=== PATIENT | female | born 1985 | race Caucasian/White ===

== ENCOUNTER 2016-06-17 02:12 | Inpatient (IN) | payer OTHER ==
[~2016-06-17] VITALS: Ht 157.5 cm; Wt 74.5 kg
[~2016-06-17 02:12] MED LIST: DICY20TA10 PO; DPH/ PO
[2016-06-17] MEDS ORDERED: LACTATED RINGER'S 1000ML 1,000 ML IV PRN (03:10)
[2016-06-17] MEDS ORDERED: LACTATED RINGER'S 1000ML 500 ML IV PRN ×2 (03:12→09:26)
[2016-06-17] MEDS ORDERED: OXYTOCIN 30 UNITS/500ML NSS IV PRN ×2 (03:15→18:15)
[2016-06-17 03:46] LABS: HEMATOCRIT 37.1 % (37-47); MEAN CELL VOLUME 99.5 fL (80-100); MEAN CORPUSCULAR HEMOGLOBIN 33.2 pg (25-34); MEAN CORPUSCULAR HGB CONC 33.4 g/dl (32-36); MEAN PLATELET VOLUME 10.6 fL (7.4-10.4); PLATELET COUNT 312 K/uL (130-400); RED BLOOD COUNT 3.73 M/uL (4.2-5.4); WHITE BLOOD COUNT 14.99 K/uL (4.8-10.8)
--- NOTE | 2016-06-17 04:06 | HISTORY & PHYSICAL EXAMINATION ---
DATE OF ADMISSION: 06/17/2016 CHIEF COMPLAINT: Leakage of fluid. HISTORY OF PRESENT ILLNESS: The patient is a 30-year-old, G1, P0 at 39 weeks' of gestation who started to feel leakage of amniotic fluid at 0020 am this morning. She has been leaking large amounts of clear fluid. She denies contractions, vaginal bleeding or abdominal pain. She reports good movements. She denies fever, chills, chest pain, shortness of breath, headache, nausea or vomiting. Her has been complicated by: 1. Smoker. She was smoking half pack a day at the beginning of and now down to 5 cigarettes per day. 2. History of a splenectomy. PAST MEDICAL HISTORY: As above. 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 ALLERGIES: ALBUTEROL CAUSES TACHYCARDIA, PERCOCET CAUSES NAUSEA AND VOMITING. SOCIAL HISTORY: The patient smokes 5 cigarettes per day. She denies alcohol or drug use. GYNECOLOGIC HISTORY: The patient denies any history of STDs including chlamydia, gonorrhea or herpes. This is her first . LABORATORIES: Her blood type is A positive, antibody screen negative, H\T\H were 12/35 and platelets 351. Rubella titer positive, RPR nonreactive, hepatitis B surface antigen negative. GC /chlamydia cultures were negative. Urine culture was negative. Glucola was 102 mg per deciliter. Repeat H\T\H were 10.6/31.2. Her platelets were 330. GBS culture was negative on 05/28/2016. PHYSICAL EXAMINATION: GENERAL: The patient is alert, oriented x3, not in acute distress. VITAL SIGNS: Her blood pressure is 110/72, heart rate 104, respirations 16, temperature 36.8 C CARDIOVASCULAR: S1, S2, RRR. LUNGS: Clear to auscultation bilaterally. ABDOMEN: Soft, nontender and gravid. Daniel's 7-8 pounds EXTREMITIES: Nontender, no edema. heart rate 150s, baseline 140s, category 1. Tocometer; no contractions. Vaginal exam done by her nurse; 1 cm dilated, 50% effaced, -2 vertex. Bedside ultrasound was done and confirmed vertex presentation. heart rate 150s and baby occiput posterior. ASSESSMENT AND PLAN: The patient is a 30-year-old, G1, P0 at 39 weeks' of gestation presenting with premature rupture of membranes at term. Vital signs are stable, afebrile. heart rate is reassuring. GBS is negative. No signs of labor. We discussed the premature rupture of membranes at term and recommended Pitocin augmentation to decrease the time of labor and the risk intra-amniotic infection. She understood and agreed with the plan. The plan is to start an IV, CBC, augmentation with Pitocin and continuously monitoring. Epidural for pain per her request. All questions were answered. CRISS
[2016-06-17 04:18] VITALS: Ht 157.5 cm; Wt 74.5 kg
[2016-06-17] MEDS ORDERED: FERR50TA3 (04:28)
[2016-06-17] MEDS ORDERED: DOCU-94 PO (04:28)
[2016-06-17] MEDS ORDERED: PRLSR20 PO (04:28)
[2016-06-17] MEDS ORDERED: PRENTAB26 PO (04:28)
[2016-06-17] MEDS ORDERED: BUTORPHANOL TARTRATE 1 MG/ML VIAL IV PRN (07:15)
[2016-06-17] MEDS: LACTATED RINGER'S 1000ML 1,000 ML IV SCH ×2 (08:48→17:09)
[2016-06-17] MEDS ORDERED: BUPIVACAINE 0.25% 30 ML VIAL ONE (08:51)
[2016-06-17] MEDS ORDERED: EpHEDrine SULFATE INJ 50 MG/ML AMP ONE (08:51)
[2016-06-17] MEDS ORDERED: FENTANYL CITRATE INJ 50 MCG/1 ML 2 ML VIAL ONE (08:52)
[2016-06-17] MEDS ORDERED: FENTANYL 2MCG/ML ROPIV 1.25MG/ML 100ML BAG EPI ONE (08:55)
[2016-06-17] MEDS ORDERED: NALOXONE HCL INJ 1 MG in SODIUM CHLORIDE 0.9% 1000ML 1,000 ML IV PRN ×4 (09:26)
[2016-06-17] MEDS ORDERED: NALBUPHINE HCL INJ 10 MG/ML AMP IV PRN (09:30)
[2016-06-17] MEDS ORDERED: ONDANSETRON INJ 2 MG/ML 2 ML VIAL IV PRN (09:30)
[2016-06-17] MEDS ORDERED: EpHEDrine SULFATE INJ 50 MG/ML AMP IV PRN (09:30)
[2016-06-17] MEDS ORDERED: LACTATED RINGER'S 1000ML 500 ML IV ONE (09:30)
[2016-06-17] MEDS ORDERED: NALOXONE HCL INJ 0.4 MG/1 ML VIAL/CARP IV PRN (09:30)
[2016-06-17] MEDS ORDERED: DiphenhydrAMINE HCL 50 MG/ML VIAL IV PRN (09:30)
[2016-06-17] MEDS ORDERED: METOCLOPRAMIDE HCL INJ 20 MG in SODIUM CHLORIDE 0.9% 50ML 50 ML IV PRN (09:30)
[2016-06-17] MEDS: FENTANYL 2MCG/ML ROPIV 1.25MG/ML 100ML BAG EPI PRN ×2 (14:59→17:11)
[2016-06-17] MEDS ORDERED: SUPERCREAM 0.870 % 15GM JAR EXT PRN (18:15)
[2016-06-17] MEDS ORDERED: ACETAMINOPHEN 325 MG TAB PO PRN (18:15)
[2016-06-17] MEDS ORDERED: HYDROCORTISONE ACETATE 25 MG SUPP PR PRN (18:15)
[2016-06-17] MEDS ORDERED: LANOLIN OINT EXT PRN ×2 (18:15)
[2016-06-17] MEDS ORDERED: BENZOCAINE 20% AER SPR 82.5 GM CAN EXT PRN (18:15)
[2016-06-17] MEDS ORDERED: DIPHTHERIA/TETANUS/PERTUSSIS 0.5 ML SYR/VIAL IM. ONE (18:15)
[2016-06-17] MEDS: DOCUSATE SODIUM 100 MG CAP PO SCH (20:46)
[2016-06-17] MEDS: IBUPROFEN 600 MG TAB PO PRN (20:46)
[2016-06-17 20:50] VITALS: BP 106/62; PULSE 90; TEMP 36.8
--- NOTE | 2016-06-17 22:56 | Anesthesia Procedure Note ---
Anesthesia Epidural Removal Nt Date & Time June 17, 2016 at 22:56 Vital Signs Pain Intensity: 2.0 Vital Signs Past 12 Hours Date Time Temp Pulse Resp B/P Pulse Ox O2 Delivery O2 Flow Rate FiO2 06/17/16 20:50 36.8 90 16 106/62 Room Air Notes Mental Status: alert / awake / arousable, participated in evaluation Nausea / Vomiting: adequately controlled Pain: adequately controlled Airway Patency, RR, SpO2: stable & adequate BP & HR: stable & adequate Hydration State: stable & adequate Neuraxial Anesthesia: was administered Anesthetic Complications: no major complications apparent, pt satisfied with anesthetic care Epidural: removed without complications, with tip intact
[2016-06-17 23:15] VITALS: BP 106/67; PULSE 95; TEMP 37
--- NOTE | 2016-06-18 02:41 | DELIVERY SUMMARY ---
DATE OF OPERATION: 06/17/2016 TIME OF DELIVERY: 174. DELIVERY OF PLACENTA: 1748. DELIVERY NOTE: The patient is a 30-year-old 1, para 0, at 39 weeks and 0 day gestation, who presented to labor and delivery on the morning of 06/17/2016 with spontaneous rupture of membranes that occurred around 12:15 a.m. On arrival, she was grossly ruptured. Oxytocin was began for labor augmentation. She did receive an epidural for anesthesia. She reached complete dilation at 1739 with the urge to push. The patient pushed to delivery. At 1746, she delivered a viable male infant in the left occiput anterior position to an intact perineum. Apgars and weight are pending. The baby once delivered was placed on the patient's abdomen. Cord was clamped x2 and cut. Please see nursing notes for further baby assessment. Cord blood was then obtained and the intact placenta with 3-vessel cord was delivered at 1748. Oxytocin infusion was then began. The lower uterine segment and vagina was cleared off any blood clots and debris. Exploration of the perineum noted a second-degree vaginal laceration which was repaired with 2-0 and 3-0 Vicryl suture in normal fashion. Excellent hemostasis was noted. No other lacerations were seen. Three sharps removed from the operative field. All sponge and instrument counts were found to be correct x2. Estimated blood loss was 300 mL. Both the patient and baby tolerated the delivery well and were in recovery with stable vital signs. I attest to the content of the Intraoperative Record and any orders documented therein. Any exceptio ns are noted below.
[2016-06-18 05:58] LABS: HEMATOCRIT 30.8 % (37-47)
[2016-06-18 08:00] VITALS: BP 111/70; PULSE 87; TEMP 37.1; O2SAT 98
[2016-06-18] MEDS: DOCUSATE SODIUM 100 MG CAP PO SCH ×2 (08:49→20:32)
[2016-06-18] MEDS: IBUPROFEN 600 MG TAB PO PRN ×3 (08:49→20:36)
[2016-06-18] MEDS: PRENATAL VITAMIN TAB PO SCH (08:49)
[2016-06-18] MEDS: FERROUS SULFATE 325 MG TAB PO SCH (08:49)
--- NOTE | 2016-06-18 08:58 | OB/GYN Progress Note ---
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 Patient is seen and examined. She feels well, but complains of not able to void Straight cath 1500 ml at 3 am, unable to void after that. Ambulating without dizziness Tolerating regular diet with out N&V Bleeding is minimal No fever/ chills/ CP/ SOB/ N&V/ Leg pain Breast feeding without problems Date Time Temp Pulse Resp B/P Pulse Ox O2 Delivery O2 Flow Rate FiO2 06/17/16 23:15 37.0 95 20 106/67 Room Air 06/17/16 20:50 36.8 90 16 106/62 Room Air Last 24 Hours Test 06/18/16 05:43 Hemoglobin 10.5 g/dL Hematocrit 30.8 % PE: General: Alert, orientedx3, NAD Abd: soft, NT, fundus firm, below Umbilicus Perineum intact, Lochia rubra minimal Ext; NT, no edema AP: 30 yo s/p , ppd# 1 VSS Afebrile doing well Urinary retention Will place romero in Continue routine care All questions were answered D/C home tomorrow
[2016-06-18] MEDS ORDERED: LACTATED RINGER'S 1000ML 1,000 ML IV SCH (09:30)
[2016-06-18 12:10] VITALS: BP 101/59; PULSE 98; TEMP 36.9; O2SAT 97
[2016-06-18 15:10] VITALS: BP 106/68; PULSE 93; TEMP 36.7; O2SAT 97
[2016-06-18] MEDS ORDERED: BISACODYL 5 MG TABEC PO SCH (20:00)
[2016-06-18 23:45] VITALS: BP 100/61; PULSE 79; TEMP 36.8; O2SAT 95
[2016-06-19] MEDS ORDERED: BISACODYL 10 MG SUPP PR PRN (07:00)
--- NOTE | 2016-06-19 07:15 | OB/GYN Progress Note ---
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 Subjective conversation w/ patient, physical exam Ambulation: ambulating normally Voiding: romero catheter in place, voiding difficulty Passing Gas: Yes Diet Tolerance: Regular Diet Lochia: Small Feeding Type: Breast Feeding Pain: 03/22 Notes: Pain much better today. Tolerating regular diet. Had difficulty voiding yesterday and had romero placed. Will d/o this morning for voiding trial. If able to then ok to d/c home today. Objective Vital Signs Date Time Temp Pulse Resp B/P Pulse Ox O2 Delivery O2 Flow Rate FiO2 06/18/16 23:45 95 Room Air 06/18/16 23:45 36.8 79 18 100/61 95 Room Air 06/18/16 17:15 Room Air 06/18/16 15:10 36.7 93 16 106/68 97 Room Air 06/18/16 12:10 36.9 98 16 101/59 97 Room Air 06/18/16 08:00 Room Air 06/18/16 08:00 37.1 87 16 111/70 98 Room Air Physical Exam General Appearance: WELL-APPEARING Respiratory/Chest: chest non-tender, lungs clear Cardiovascular: regular rate, rhythm Abdomen: normal bowel sounds, soft Fundus: Firm Extremities: normal range of motion, non-tender, no calf tenderness Laboratory Results Last 24 Hours Test 06/19/16 04:44 Assessment and Plan Post- Day Number: 2 Continue Routine Care: -D/C romero this AM, voiding trial -D/C home today if able to urinate -F/U in 6 weeks for ppv.
[2016-06-19] MEDS ORDERED: MTR600X PO (07:16)
--- NOTE | 2016-06-19 07:17 | Discharge Instructions ---
Discharge Instructions Date of Service June 19, 2016. Admission Reason for Admission: LABOR Discharge Discharge Diagnosis / Problem: vaginal delivery Discharge Goals Goal(s): Routine recovery after delivery Medications Continue Dispensed Medications: supercream, dermaplast, tucks, lansinoh Activity Recommendations Activity Limitations: per Instructions/Follow-up section . Instructions / Follow-Up Instructions / Follow-Up ACTIVITY RECOMMENDATIONS: * Gradual return to full activity over the next 2-3 weeks. * No lifting - nothing heavier than baby over the next 2-3 weeks. * Do not engage in vigorous exercise, sexual activity or sports until cleared by your physician. * Do not drive or operate any motorized equipment until cleared by your physician. * You may shower/bathe daily. BREAST CARE: If you are not breast feeding: * Wear a supportive bra 24 hours a day for one to two weeks. * Avoid stimulating your breasts and nipples as much as possible during the first few weeks after delivery. * When taking a shower, have the warm water hit your back, not breasts. * When your breasts feel full, apply ice packs. Usually three to four times a day helps ease the discomfort. * Take a mild pain medication (Tylenol/Motrin) when you are uncomfortable. If breast feeding: * Use breast milk to lubricate nipples. Lansinoh cream may be used for sore nipples. You do not need to remove cream prior to breast feeding. If using a different brand of cream, check the label for directions regarding removal of cream prior to nursing. * Wear a supportive bra. * If having problems with breasts or breast feeding, call a leadership development consultant or your health care provider. EPISIOTOMY CARE: After delivery, if you have an episiotomy (stitches), the following steps will ease discomfort and aid healing. * For the first 24 hours after delivery, place ice packs next to your episiotomy to help reduce swelling. * After the first 24 hour-period, sitz baths, either portable or in the tub, are suggested. A shower with a shower arm sprayed over the episiotomy may be comforting. * [place] care should be done after each voiding and bowel movement. Squirt warm water from a plastic bottle over the perineum (region of the body between the anus and urinary opening) and pat dry. * Use Dermoplast to ease discomfort. Shake container. [place] directly over the episiotomy. * Place a Tucks on a clean sanitary pad next to your episiotomy. OVER THE COUNTER MEDICATION: * For discomfort or pain, you may use Acetaminophen (Tylenol), Ibuprofen (Advil ), or Naproxen (Aleve) following the package directions. * For constipation you may use Colace following the package directions. SPECIAL CARE INSTRUCTIONS: When you are discharged from the hospital, it is important for you to follow the instructions listed below: * During the first week at home, you should be able to care for yourself and your baby. In addition, the usual light household activities are encouraged. * Limit your activities to the way you feel. Do not try to clean the house or move furniture. Be sensible. * If you actively engage in sports and have done so up until the time of your delivery, you may resume these activities as soon as you feel able. This may take up to one month or even longer. Use good judgment. * Continue to take your vitamins for at least six weeks after the of your baby. * Your diet need not be limited unless you were on a special diet before your delivery. Breast-feeding mothers need around 2500 calories per day and at least 64-80 ounces of fluid per day (8 to 10 glasses). * You should eat foods from the four major food groups. Crash diets or fad diets are to be avoided. Eating lean meats, fresh fruits and vegetables, low-fat dairy products, high fiber foods and a regular exercise program, will help you get back to your pre- weight without putting your health at risk. * Constipation is sometimes a problem after delivery. Take a mild laxative as needed. If breast feeding, Milk of Magnesia is acceptable to use. You may use a suppository or Fleets enema if no episiotomy. * A daily shower or tub bath is suggested. Be sure to thoroughly and gently dry the perineum. * A bloody vaginal discharge will usually continue until around four weeks post . A small amount of bleeding may continue for as long as six weeks. Vaginal discharge changes from the bright red bleeding after delivery to pink then brownish and finally yellowish-pink before becoming white and disappearing. * Bleeding may increase with activity. Your first period may come in 4-8 weeks. If you are breast feeding, your period may be delayed even longer. * [place] (sex) can begin whenever both you and your partner feel comfortable and do not have any form of genital infection. It is recommended that you wait until after your return appointment and discuss with your physician. If you have questions, please talk to your health care practitioner. A condom should be used to prevent infection and . * Foreplay, gentle intercourse and lubrication is very important the first several times to prevent pain. A water-based lubricant such as K-Y jelly or Astroglide may be used. * Tampons may be used six weeks after delivery. * Douching should be avoided for 6 weeks after delivery. * If you have RH negative blood and your baby is RH positive, you will receive RHOGAM by injection prior to discharge. The nurse will give you a card to keep with you that has the date and place that you received RHOGAM after delivery. * During your care, you had a Rubella screen done to check for the presence of rubella antibodies in your blood. If your test was negative, you will receive a Rubella vaccine prior to discharge. This vaccine may cause a fever, soreness at the injection site and flu-like symptoms. If these symptoms persist, notify your health care practitioner. is not advised for three months after a Rubella vaccine. There is a higher chance of having a baby with defects if conceived within three months of getting the vaccine. * If you were discharged 24 hours from delivery or before 48 hours: Visiting nurses will come to your home 48 hours after discharge to assess you and your baby. The visiting nurse will meet with you while you are in the hospital to arrange a time and get directions to your home. * Verbalizes understanding of car seat law as reviewed with patient nursing. * Car Seat hand-out given and reviewed with patient by nursing. * Shaken baby information reviewed with patient by nursing. Call you doctor if: * Heavy bleeding (saturating several pads an hour) or passing clots the size of your fist. * A fever >101 degrees F (38.3 degrees C) on two occasions four hours apart and/or chills. * Unusual pain in the pelvic or vaginal areas. * "Baby Blues" lasting longer than two weeks. If you have any questions or concerns, call your health care practitioner at . FOLLOW-UP VISIT: * Please call the office at to schedule a 6 week examination. It is important you keep this appointment. * It is important for you to make arrangements for either yearly or twice yearly check-ups thereafter. Current Hospital Diet Patient's current hospital diet: Regular OB Diet Discharge Diet Recommended Diet: Regular OB Diet Pending Studies Studies pending at discharge: no Medical Emergencies . Who to Call and When: Medical Emergencies: If at any time you feel your situation is an emergency, please call 911 immediately. . Non-Emergent Contact Non-Emergency issues call your: Primary Care Provider, Sub Acute Care Nurse . . "Provider Documentation" section prepared by Abel Pearson. . VTE Core Measure Inpt VTE Proph given/why not?: Treatment not indicated
[2016-06-19 08:00] VITALS: BP 100/65; PULSE 95; TEMP 37.1
[2016-06-19 08:21] LABS: HEMATOCRIT 31.9 % (37-47); MEAN CELL VOLUME 101.6 fL (80-100); MEAN CORPUSCULAR HEMOGLOBIN 34.7 pg (25-34); MEAN CORPUSCULAR HGB CONC 34.2 g/dl (32-36); MEAN PLATELET VOLUME 10.3 fL (7.4-10.4); PLATELET COUNT 282 K/uL (130-400); RED BLOOD COUNT 3.14 M/uL (4.2-5.4)
[2016-06-19] MEDS: FERROUS SULFATE 325 MG TAB PO SCH (08:30)
[2016-06-19] MEDS: PRENATAL VITAMIN TAB PO SCH (08:31)
[2016-06-19] MEDS: DOCUSATE SODIUM 100 MG CAP PO SCH (08:31)
[2016-06-19] MEDS: IBUPROFEN 600 MG TAB PO PRN (08:32)
[2016-06-19 14:24] VITALS: BP_DIAS 65; PULSE 95; TEMP 37.1
== END 2016-06-19 15:00 | disposition home or self-care (01) | DRG 774 ==
LOC: C.LD 02:12 → C.OPB 02:12 → C.LD 03:12 → C.OBG 20:32 → EDSTATUS 06-24 02:11
PROVIDERS: ADMIT Obstetrics & Gynecology; ATTEND Obstetrics & Gynecology
PROC: 10E0XZZ Delivery of Products of Conception, External Approach (ICD-10-PCS; principal; 2016-06-17)
PROC: 0KQM0ZZ Repair Perineum Muscle, Open Approach (ICD-10-PCS; principal; 2016-06-17)
DX: O42.02 Full-term premature rupture of membranes, onset of labor within 24 hours of rupture (principal); O90.89 Other complications of the puerperium, not elsewhere classified; O70.1 Second degree perineal laceration during delivery; O99.334 Smoking (tobacco) complicating childbirth; F17.210 Nicotine dependence, cigarettes, uncomplicated; R33.9 Retention of urine, unspecified; O99.62 Diseases of the digestive system complicating childbirth; K21.9 Gastro-esophageal reflux disease without esophagitis; Z37.0 Single live birth; Z3A.39 39 weeks gestation of pregnancy; Z90.81 Acquired absence of spleen; Z79.899 Other long term (current) drug therapy

== ENCOUNTER 2018-11-25 07:31 | Inpatient (IN) ==
[2018-11-25] MEDS ORDERED: OXYTOCIN 30 UNITS/500 ML BAG IV PRN (09:03)
--- NOTE | 2018-11-25 09:23 | Obstetrical Progress Note ---
Date of Service November 25, 2018 Subjective Admit Note 33 F P1001 at 40.2 weeks admitted for post-dates induction. GBS is negative. FHT Cat 1 with irregular contractions. No complications or problems. Cervix is 1/50/-3/vertex/anterior/firm/intact. EFW is 7lb. Will place Cytotec 25 mcg vaginally for cervical ripening. Results & Data Vital Signs (Past 12 Hours) Vital Signs Temp Pulse Resp BP 11/25/18 08:29 111 H 97/59 L 11/25/18 08:24 36.8 C 111 H 20 97/59 L 11/25/18 07:39 130 H 121/76
[2018-11-25 09:57] LABS: Hematocrit (blood only) 35.6 % (37-47); Hemoglobin 12.5 g/dL (12.0-16.0); Mean Corpuscular Hemoglobin 34.8 pg (25-34); Mean Corpuscular Hgb Conc 35.1 g/dL (32-36); Mean Corpuscular Volume 99.2 fL (80-100); Mean Platelet Volume 10.8 fL (7.4-10.4); Nucleated RBC # (auto) 0.03 K/uL (0-0); Nucleated RBC % (auto) 0.2 %; Platelet Count 276 K/uL (130-400); RDW Coefficient of Variation 13.7 % (11.5-14.5); RDW Standard Deviation 49.4 fL (36.4-46.3); Red Blood Count 3.59 M/uL (4.2-5.4); White Blood Count 15.72 K/uL (4.8-10.8)
[2018-11-25] MEDS: miSOPROStoL 25 MCG TAB PV SCH ×4 (10:04→23:39)
--- NOTE | 2018-11-25 10:07 | Obstetrical Progress Note ---
Date of Service November 25, 2018 Physical Exam Genitourinary: OB Exam Monitor Tracing: + external FHT monitor used, + external uterine monitor used, + category I and + normal FHT variability Cytotec 25 mcg placed vaginally Results & Data Vital Signs (Past 12 Hours) Vital Signs Temp Pulse Resp BP 11/25/18 08:29 111 H 97/59 L 11/25/18 08:24 36.8 C 111 H 20 97/59 L 11/25/18 07:39 130 H 121/76
[2018-11-25] MEDS ORDERED: miSOPROStoL 25 MCG TAB PV SCH (12:00)
[2018-11-25] MEDS: BUTORPHANOL TARTRATE 1 MG/ML VIAL IV PRN (21:41)
--- NOTE | 2018-11-25 21:42 | Obstetrical Progress Note ---
Date of Service November 25, 2018 Physical Exam Genitourinary: Manual OB Exam: + cervical dilation 1 cm, + cervical effacement 50% and + station high OB Exam Monitor Tracing: + external FHT monitor used, + category I and + normal FHT variability Will place Cervidil to continue ripening. option given to send home tomorrow AM if not ripe. Results & Data Vital Signs (Past 12 Hours) Vital Signs Temp Pulse Resp BP Pulse Ox 11/25/18 21:37 96 H 99 11/25/18 19:11 36.7 C 18 11/25/18 19:07 88 100/63 11/25/18 16:38 36.8 C 86 20 114/69 11/25/18 14:15 104 H 20 116/68 11/25/18 12:10 36.9 C 108 H 20 102/59 L 11/25/18 10:07 116 H 110/69 11/25/18 10:06 20
[2018-11-25] MEDS ORDERED: DINOPROSTONE 10 MG INSERT PV ONE (21:46)
--- NOTE | 2018-11-25 22:28 | Obstetrical Progress Note ---
Date of Service November 25, 2018 Physical Exam Genitourinary: Cervidil 10 mg placed vaginally. Results & Data Vital Signs (Past 12 Hours) Vital Signs Temp Pulse Resp BP Pulse Ox 11/25/18 22:23 87 89 L 11/25/18 22:21 69 96 11/25/18 22:12 96 H 96 11/25/18 22:07 90 96 11/25/18 22:02 84 96 11/25/18 21:58 88 94 11/25/18 21:57 94 H 97 11/25/18 21:52 81 96 11/25/18 21:47 95 H 98 11/25/18 21:42 80 99 11/25/18 21:37 96 H 99 11/25/18 19:11 36.7 C 18 11/25/18 19:07 88 100/63 11/25/18 16:38 36.8 C 86 20 114/69 11/25/18 14:15 104 H 20 116/68 11/25/18 12:10 36.9 C 108 H 20 102/59 L
[2018-11-26] MEDS: BUTORPHANOL TARTRATE 1 MG/ML VIAL IV PRN ×2 (00:26→03:21)
[2018-11-26] MEDS: LACTATED RINGER'S 1,000 ML IV PRN ×2 (06:49→07:50)
[2018-11-26] MEDS ORDERED: fentaNYL 2MCG/ML ROPIV 1.25MG/ML 100 ML BAG EPI ONE (07:01)
[2018-11-26] MEDS ORDERED: BUPIVACAINE 0.25% 30 ML VIAL ONE (07:01)
[2018-11-26] MEDS ORDERED: fentaNYL citrate 100 MCG/2 ML VIAL ONE (07:01)
[2018-11-26] MEDS ORDERED: ePHEDrine sulfate 50 MG/ML AMP ONE (07:01)
[2018-11-26] MEDS ORDERED: NALOXONE HCL 0.4 MG/1 ML VIAL/CARP IV PRN (07:28)
[2018-11-26] MEDS ORDERED: DiphenhydrAMINE HCL 50 MG/ML VIAL IV PRN (07:28)
[2018-11-26] MEDS ORDERED: PROMETHAZINE HCL 6.25 MG in SODIUM CHLORIDE 0.9% 50 ML IV PRN (07:28)
[2018-11-26] MEDS ORDERED: ONDANSETRON INJ 2 MG/ML 2 ML VIAL IV PRN (07:28)
[2018-11-26] MEDS ORDERED: ePHEDrine sulfate 50 MG/ML AMP IV PRN (07:28)
[2018-11-26] MEDS ORDERED: fentaNYL 2MCG/ML ROPIV 1.25MG/ML 100 ML BAG EPI PRN (07:28)
[2018-11-26] MEDS ORDERED: NALBUPHINE HCL INJ 10 MG/ML AMP IV PRN (07:28)
[2018-11-26] MEDS ORDERED: NALOXONE HCL 1 MG in SODIUM CHLORIDE 0.9% 1000ML 1,000 ML IV PRN (07:28)
--- NOTE | 2018-11-26 07:51 | Anesthesiology Consultation ---
Date of Service November 26, 2018 @ 40.3 Assessment & Plan (1) Encounter for pre-operative examination: Chart Review Chart Review: Patient NOT seen in Pre Admission Testing and Acceptable Risk for Labor Epidural Consults Requested none ASA ASA2 Proposed Anesthesia Anesthesia Type: Labor Epidural Risk / Benefits Reviewed With: PT / POA / Parent / Guardian, Accepts Plan and Informed Consent Obtained History Height/Weight Height: 5 ft 2 in Weight: 74.642 kg Allergies Allergy/AdvReac Type Severity Reaction Status Date / Time oxycodone AdvReac Severe VOMITING Verified 04/18/18 08:36 albuterol AdvReac Unknown tachycardia Verified 04/18/18 08:36 sertraline AdvReac Unknown nausea/vomi Verified 04/18/18 08:36 ting Medications Home Medications Medication Instructions Recorded Confirmed Last Taken Vitamin 1 tabs PO DAILY 10/11/18 11/25/18 11/24/18 21:00 Probiotic 1 cap PO DAILY 10/11/18 11/25/18 11/24/18 21:00 Active Medications Generic Name Dose Route Start Last Admin Trade Name Freq PRN Reason Stop Dose Admin Butorphanol Tartrate 1 mg 11/25/18 20:25 11/26/18 03:21 Stadol IV 12/25/18 20:24 1 mg Q2HWA PRN Administration Pain Lactated Ringer's 1,000 mls @ 125 mls/hr 11/25/18 09:03 11/26/18 07:50 Lr IV 11/27/18 09:02 999 mls/hr .Q8H PRN Administration L&D Protocol Protocol Misoprostol 25 mcg 11/25/18 10:00 11/25/18 23:39 Cytotec PV 12/25/18 09:59 Not Given Q4H KEITH Past Medical History Medical History Asplenia (Acute) Ovarian cyst (Acute ~02/02/08) Anxiety (~12/03/00) Endometriosis determined by laparoscopy (~04/27/15) Hypothyroidism (~12/02/12) C. difficile colitis (~09/24/17) Exercise / Class Metabolic Activity II 4-5 Yardwork/Stairs/Walk up hill Past Surgical History Surgical History History of splenectomy (~11/16/10) Status post fecal microbiota transplant (~11/24/17) Past Anesthesia History No Hx of Anesthesia Complications and No Family Hx of Anesthesia Complications History of PONV No Hx of PONV and No Hx of Motion Sickness Social History Smoking Status: Light tobacco smoker tobacco type: cigarettes Smoking cigarettes per day: 10 Do You Dip or Chew Tobacco: No Hx Alcohol Use: No Hx Substance Use: No substance use type: does not use Physical Exam Vital Signs Last Vital Signs Temp 36.5 C 11/26/18 07:09 Pulse 88 11/26/18 07:49 Resp 22 11/26/18 07:09 BP 101/58 L 11/26/18 07:49 Pulse Ox 99 11/26/18 07:47 ENMT Mouth: no dentition abnormality Thyromental Distance: > or= 3.5 Finger Breadths Mallampati Class: II Neck normal visual inspection Respiratory normal respiratory effort Auscultation: lungs clear to auscultation bilaterally Cardiovascular Rate/Rhythm: regular rate and regular rhythm Psychiatric Orientation: alert Testing Laboratory Results 11/25/18 09:47
--- NOTE | 2018-11-26 10:47 | Labor Progress Brief Note ---
Date of Service November 26, 2018 Pt doing well s/p epidural analgesia FHR; CAT1 Ctx 2-5mins VE; 2/50/-3/ soft/post EFW 7'5 Will start Pitocin augmentation Pt agrees to plan Results & Data Vital Signs (Past 12 Hours) Vital Signs Temp Pulse Resp BP Pulse Ox 11/26/18 10:42 93 H 96 11/26/18 10:37 94 H 108/72 99 11/26/18 10:32 108 H 98 11/26/18 10:27 106 H 97 11/26/18 10:22 94 H 95 11/26/18 10:21 89 108/59 L 11/26/18 10:17 91 H 96 11/26/18 10:12 93 H 96 11/26/18 10:07 102 H 98 11/26/18 10:06 91 H 115/71 11/26/18 10:02 89 99 11/26/18 09:57 73 99 11/26/18 09:53 78 110/55 L 11/26/18 09:52 78 99 11/26/18 09:47 75 98 11/26/18 09:42 92 H 95 11/26/18 09:37 79 99/57 L 96 11/26/18 09:32 80 98 11/26/18 09:27 74 97 11/26/18 09:22 78 100 11/26/18 09:17 79 98 11/26/18 09:16 73 106/55 L 11/26/18 09:12 80 100/59 L 100 11/26/18 09:08 84 92/52 L 92 11/26/18 09:07 85 100 11/26/18 09:02 75 97 11/26/18 09:01 79 96/50 L 11/26/18 08:57 75 89/53 L 98 11/26/18 08:52 74 100 11/26/18 08:51 75 91/53 L 11/26/18 08:48 80 107/54 L 11/26/18 08:47 96 H 93 11/26/18 08:42 79 91/52 L 97 11/26/18 08:37 78 99 11/26/18 08:36 88 105/56 L 11/26/18 08:32 83 99 11/26/18 08:31 81 104/59 L 11/26/18 08:27 81 99 11/26/18 08:26 79 108/57 L 11/26/18 08:22 86 107/51 L 99 11/26/18 08:21 82 87 L 11/26/18 08:17 87 98 11/26/18 08:16 82 91/50 L 11/26/18 08:12 83 100 11/26/18 08:11 85 99/55 L 11/26/18 08:09 92 H 93/52 L 11/26/18 08:07 92 H 96/55 L 100 11/26/18 08:05 86 95/56 L 11/26/18 08:03 95/53 L 11/26/18 08:02 84 99 11/26/18 08:01 78 89/48 L 85 L 11/26/18 07:59 93 H 119/52 L 11/26/18 07:57 98 H 127/59 L 98 11/26/18 07:55 96 H 115/61 11/26/18 07:53 94 H 110/57 L 85 L 11/26/18 07:52 96 H 98 11/26/18 07:51 112 H 99/58 L 11/26/18 07:49 88 101/58 L 11/26/18 07:47 111 H 105/60 99 11/26/18 07:45 90 102/61 11/26/18 07:43 93 H 98/69 L 11/26/18 07:42 104 H 98 11/26/18 07:41 92 H 120/66 11/26/18 07:39 88 119/64 11/26/18 07:37 101 H 93 11/26/18 07:33 90 87 L 11/26/18 07:32 90 98 11/26/18 07:25 68 100 11/26/18 07:20 77 99 11/26/18 07:15 71 100 11/26/18 07:10 100 H 97 11/26/18 07:09 36.5 C 77 22 137/65 11/26/18 07:06 84 94 11/26/18 07:05 71 100 11/26/18 07:00 88 96 11/26/18 06:55 84 96 11/26/18 06:50 97 H 97 11/26/18 06:45 91 H 98 11/26/18 05:17 105 H 89 L 11/26/18 05:14 98 H 96 17 05:09 104 H 98 11/26/18 05:04 91 H 95 11/26/18 04:59 88 96 11/26/18 04:54 78 96 11/26/18 04:49 95 H 96 11/26/18 04:44 88 95 17 04:39 83 95 17 04:34 97 H 95 11/26/18 04:29 90 95 19 04:24 87 95 1719 04:20 90 94 11/26/18 04:19 83 95 17 04:14 82 95 11/26/18 04:09 82 95 11/26/18 04:04 81 95 11/26/18 03:59 76 95 1719 03:54 71 95 11/26/18 03:49 79 95 1719 03:44 83 95 11/26/18 03:39 81 96 11/26/18 03:34 83 96 19 03:32 36.7 C 16 11/26/18 03:29 90 96/63 L 96 11/26/18 03:28 89 92 11/26/18 03:24 82 97 11/26/18 01:27 77 95 11/26/18 01:22 73 96 11/26/18 01:19 72 93 11/26/18 01:17 89 96 11/26/18 01:12 75 95 11/26/18 01:08 90 94 11/26/18 01:07 83 95 11/26/18 01:02 78 95 1719 00:59 90 94 1719 00:57 85 95 1719 00:52 76 96 17/19 00:47 78 95 1719 00:42 70 96 17/19 00:37 84 97 1719 00:32 82 97 1719 00:27 81 97 1719 00:16 86 97 17 00:11 70 95 17/19 00:06 77 97 17 00:01 100 H 97 16/19 23:56 87 96 1619 23:51 87 95 11/25/18 23:46 83 96 11/25/18 23:41 86 96 11/25/18 23:36 91 H 96 11/25/18 23:31 79 96 11/25/18 23:26 82 96 11/25/18 23:21 90 97 11/25/18 23:16 92 H 97 11/25/18 23:11 83 96 11/25/18 23:06 86 96 11/25/18 23:01 83 96 11/25/18 22:56 83 96 11/25/18 22:51 87 96 11/25/18 22:46 83 95
[2018-11-26] MEDS ORDERED: OXYTOCIN 30 UNITS/500 ML BAG IV PRN ×2 (10:48→14:10)
--- NOTE | 2018-11-26 12:48 | Labor Progress Brief Note ---
Date of Service November 26, 2018 Pt doing well No complaints Epidural analgesia in place FHR; CAT1 Ctx 2-4mins Pit; 6mu VE; 4/50/-2 AROM- clear Results & Data Vital Signs (Past 12 Hours) Vital Signs Temp Pulse Resp BP Pulse Ox 11/26/18 12:42 86 98 11/26/18 12:37 92 H 115/60 98 11/26/18 12:32 111 H 97 11/26/18 12:27 94 H 96 11/26/18 12:22 94 H 108/59 L 97 11/26/18 12:17 93 H 97 11/26/18 12:12 99 H 97 11/26/18 12:07 101 H 18 104/58 L 97 11/26/18 12:02 97 H 97 11/26/18 11:57 98 H 96 11/26/18 11:52 100 H 96 11/26/18 11:51 99 H 95/55 L 11/26/18 11:47 95 H 97 11/26/18 11:42 92 H 97 11/26/18 11:38 104 H 92 11/26/18 11:37 95 H 97 11/26/18 11:36 107 H 100/57 L 11/26/18 11:32 100 H 97 11/26/18 11:27 99 H 95 11/26/18 11:22 91 H 100/57 L 96 11/26/18 11:17 98 H 95 11/26/18 11:12 93 H 96 11/26/18 11:07 104 H 109/61 97 11/26/18 11:02 99 H 97 11/26/18 10:57 103 H 95 11/26/18 10:52 97 H 96 11/26/18 10:51 96 H 101/56 L 11/26/18 10:47 96 H 96 11/26/18 10:42 93 H 96 11/26/18 10:37 94 H 108/72 99 11/26/18 10:32 108 H 98 11/26/18 10:27 106 H 97 11/26/18 10:22 94 H 95 11/26/18 10:21 89 108/59 L 11/26/18 10:17 91 H 96 11/26/18 10:12 93 H 96 11/26/18 10:07 102 H 98 11/26/18 10:06 91 H 115/71 11/26/18 10:02 89 99 11/26/18 09:57 73 99 11/26/18 09:53 78 110/55 L 11/26/18 09:52 78 99 11/26/18 09:47 75 98 11/26/18 09:42 92 H 95 11/26/18 09:37 79 99/57 L 96 11/26/18 09:32 80 98 11/26/18 09:27 74 97 11/26/18 09:22 78 100 11/26/18 09:17 79 98 11/26/18 09:16 73 106/55 L 11/26/18 09:12 80 100/59 L 100 11/26/18 09:08 84 92/52 L 92 11/26/18 09:07 85 100 11/26/18 09:02 75 97 11/26/18 09:01 79 96/50 L 11/26/18 08:57 75 89/53 L 98 11/26/18 08:52 74 100 11/26/18 08:51 75 91/53 L 11/26/18 08:48 80 107/54 L 11/26/18 08:47 96 H 93 11/26/18 08:42 79 91/52 L 97 11/26/18 08:37 78 99 11/26/18 08:36 88 105/56 L 11/26/18 08:32 83 99 11/26/18 08:31 81 104/59 L 11/26/18 08:27 81 99 11/26/18 08:26 79 108/57 L 11/26/18 08:22 86 107/51 L 99 11/26/18 08:21 82 87 L 11/26/18 08:17 87 98 11/26/18 08:16 82 91/50 L 11/26/18 08:12 83 100 11/26/18 08:11 85 99/55 L 11/26/18 08:09 92 H 93/52 L 11/26/18 08:07 92 H 96/55 L 100 11/26/18 08:05 86 95/56 L 11/26/18 08:03 95/53 L 11/26/18 08:02 84 99 11/26/18 08:01 78 89/48 L 85 L 11/26/18 07:59 93 H 119/52 L 11/26/18 07:57 98 H 127/59 L 98 11/26/18 07:55 96 H 115/61 11/26/18 07:53 94 H 110/57 L 85 L 11/26/18 07:52 96 H 98 11/26/18 07:51 112 H 99/58 L 11/26/18 07:49 88 101/58 L 11/26/18 07:47 111 H 105/60 99 11/26/18 07:45 90 102/61 11/26/18 07:43 93 H 98/69 L 11/26/18 07:42 104 H 98 11/26/18 07:41 92 H 120/66 11/26/18 07:39 88 119/64 11/26/18 07:37 101 H 93 11/26/18 07:33 90 87 L 11/26/18 07:32 90 98 11/26/18 07:25 68 100 11/26/18 07:20 77 99 11/26/18 07:15 71 100 11/26/18 07:10 100 H 97 11/26/18 07:09 36.5 C 77 22 137/65 11/26/18 07:06 84 94 11/26/18 07:05 71 100 11/26/18 07:00 88 96 11/26/18 06:55 84 96 11/26/18 06:50 97 H 97 11/26/18 06:45 91 H 98 11/26/18 05:17 105 H 89 L 11/26/18 05:14 98 H 96 11/26/18 05:09 104 H 98 11/26/18 05:04 91 H 95 11/26/18 04:59 88 96 11/26/18 04:54 78 96 11/26/18 04:49 95 H 96 11/26/18 04:44 88 95 17 04:39 83 95 11/26/18 04:34 97 H 95 11/26/18 04:29 90 95 17 04:24 87 95 11/26/18 04:20 90 94 11/26/18 04:19 83 95 11/26/18 04:14 82 95 11/26/18 04:09 82 95 11/26/18 04:04 81 95 11/26/18 03:59 76 95 11/26/18 03:54 71 95 11/26/18 03:49 79 95 11/26/18 03:44 83 95 11/26/18 03:39 81 96 11/26/18 03:34 83 96 11/26/18 03:32 36.7 C 16 11/26/18 03:29 90 96/63 L 96 11/26/18 03:28 89 92 11/26/18 03:24 82 97 11/26/18 01:27 77 95 11/26/18 01:22 73 96 11/26/18 01:19 72 93 11/26/18 01:17 89 96 11/26/18 01:12 75 95 11/26/18 01:08 90 94 11/26/18 01:07 83 95 11/26/18 01:02 78 95 11/26/18 00:59 90 94 11/26/18 00:57 85 95 11/26/18 00:52 76 96
[2018-11-26] MEDS ORDERED: METHYLERGONOVINE MALEATE 0.2 MG/ML AMP ONE (13:49)
[2018-11-26] MEDS ORDERED: miSOPROStoL 200 MCG TAB ONE (13:51)
[2018-11-26] MEDS ORDERED: bisacodyL 10 MG SUPP PR PRN (14:10)
[2018-11-26] MEDS ORDERED: BENZOCAINE 20% AER SPR 82.5 GM CAN EXT PRN (14:10)
[2018-11-26] MEDS ORDERED: DIPHTHERIA/TETANUS/PERTUSSIS 0.5 ML SYR/VIAL IM ONE (14:10)
[2018-11-26] MEDS ORDERED: miSOPROStoL 200 MCG TAB PR ONE (14:10)
[2018-11-26] MEDS ORDERED: SUPERCREAM 0.870% 15 GM JAR EXT PRN (14:10)
[2018-11-26] MEDS ORDERED: HYDROCORTISONE ACETATE 25 MG SUPP PR PRN (14:10)
[2018-11-26] MEDS ORDERED: ACETAMINOPHEN 325 MG TAB PO PRN (14:10)
[2018-11-26] MEDS ORDERED: METHYLERGONOVINE MALEATE 0.2 MG/ML AMP IM ONE (14:10)
--- NOTE | 2018-11-26 14:21 | Delivery Summary ---
DATE OF OPERATION: 11/26/2018 The patient delivered a live infant female in left occiput anterior presentation with right hand compound presentation. There was tight nuchal cord which was clamped and cut. Infant was delivered, placed on mother's abdomen. Cord gas and cord blood was obtained. 's weight is pending. Apgars 8 and 9. Placenta was spontaneously delivered. Inspection of the placenta shows a normal 3-vessel cord placenta. Estimated blood loss is 400 mL. Mother and baby are doing well and stable. Inspection of the perineum shows a second-degree midline laceration which was repaired with Vicryl. There was good hemostasis post repair. All instruments were removed from the vagina and accounted for x2 including sponges, needles and retractors. Rectal exam post repair showed good sphincter tone, no sutures are palpated in the rectum. I attest to the content of the Intraoperative Record and any orders documented therein. Any exception s are noted below.
--- NOTE | 2018-11-26 15:53 | Anesthesia Procedure Note ---
Date of Service November 26, 2018 Anesthesia Post Epidural Note Vital Signs Vital Signs: Temp Pulse Resp BP Pulse Ox 36.6 C 84 18 133/62 97 11/26/18 14:55 11/26/18 15:51 11/26/18 15:25 11/26/18 15:51 11/26/18 13:42 Pain Intensity Abdomen: Pain Intensity: 7 Notes Mental Status: alert / awake / arousable Nausea / Vomiting: adequately controlled Pain: adequately controlled Airway Patency, RR, SpO2: stable & adequate BP & HR: stable & adequate Hydration State: stable & adequate Neuraxial Anesthesia: was administered and sensory block is resolving Anesthetic Complications: no major complications apparent and Pt Satisfied with anesthetic care Epidural: Removed without complications and With tip intact
[2018-11-26] MEDS: IBUPROFEN 600 MG TAB PO PRN ×2 (16:53→21:41)
[2018-11-26] MEDS: DOCUSATE SODIUM 100 MG CAP PO SCH (20:20)
[2018-11-27 06:25] LABS: Hematocrit (blood only) 36.2 % (37-47); Hemoglobin 12.4 g/dL (12.0-16.0); Mean Corpuscular Hemoglobin 34.2 pg (25-34); Mean Corpuscular Hgb Conc 34.3 g/dL (32-36); Mean Corpuscular Volume 99.7 fL (80-100); Mean Platelet Volume 10.5 fL (7.4-10.4); Platelet Count 237 K/uL (130-400); RDW Coefficient of Variation 13.7 % (11.5-14.5); RDW Standard Deviation 49.1 fL (36.4-46.3); Red Blood Count 3.63 M/uL (4.2-5.4); White Blood Count 18.74 K/uL (4.8-10.8)
[2018-11-27] MEDS: IBUPROFEN 600 MG TAB PO PRN ×2 (06:47→16:58)
--- NOTE | 2018-11-27 08:11 | Obstetrical Progress Note ---
Date of Service November 27, 2018 Subjective Patient is seen and examined. She feels well, no complaints. Likes to be discharged tonight if possible Ambulating without dizziness Had romero catheter since delivery, h/o urinary retention 2 years ago Tolerating regular diet with out N&V Bleeding is minimal No fever/ chills/ CP/ SOB/ N&V/ Leg pain Breast feeding without problems Vital Signs Temp Pulse Resp BP Pulse Ox 11/27/18 07:49 36.7 C 79 20 104/67 96 11/27/18 03:20 36.8 C 83 18 102/67 11/26/18 23:45 37.4 C 71 16 107/71 Lab Results 11/25/18 11/27/18 Range/Units 09:47 06:11 WBC 15.72 H 18.74 H (4.8-10.8) K/uL RBC 3.59 L 3.63 L (4.2-5.4) M/uL Hgb 12.5 12.4 (12.0-16.0) g/dL Hct 35.6 L 36.2 L (37-47) % MCV 99.2 99.7 (80-100) fL MCH 34.8 H 34.2 H (25-34) pg MCHC 35.1 34.3 (32-36) g/dL RDW Std Deviation 49.4 H 49.1 H (36.4-46.3) fL RDW Coeff of Tracey 13.7 13.7 (11.5-14.5) % Plt Count 276 237 (130-400) K/uL MPV 10.8 H 10.5 H (7.4-10.4) fL Absolute Nucleated RBC 0.03 H (0-0) K/uL Nucleated RBC % (auto) 0.2 % PE: General: Alert, orientedx3, NAD Abd: soft, NT, fundus firm, below Umbilicus Perineum intact, Lochia rubra minimal Ext; NT, no edema AP: 33 yo s/p , ppd# 1 VSS Afebrile doing well Continue routine care d/c romero at noon, then PVRX3 Possible d/c home if will b able to void and WBCC will decrease All questions were answered Results & Data Vital Signs (Past 12 Hours) Vital Signs Temp Pulse Resp BP Pulse Ox 11/27/18 07:49 36.7 C 79 20 104/67 96 11/27/18 03:20 36.8 C 83 18 102/67 11/26/18 23:45 37.4 C 71 16 107/71
[2018-11-27] MEDS: DOCUSATE SODIUM 100 MG CAP PO SCH ×2 (08:53→20:49)
[2018-11-27] MEDS: PRENATAL VITAMIN 1 TAB PO SCH (08:53)
[2018-11-27] MEDS: FERROUS SULFATE 325 MG TAB PO SCH ×2 (08:53→08:55)
[2018-11-27] MEDS: LACTOBACILLUS ACIDOPHILUS (FLORANEX) TAB PO SCH ×3 (10:17→16:59)
[2018-11-27] MEDS ORDERED: bisacodyL 5 MG TABEC PO SCH (20:00)
[2018-11-28 06:51] LABS: Basophils # (auto) 0.04 K/uL (0-0.2); Basophils % (auto) 0.3 %; Eosinophils # (auto) 0.41 K/uL (0-0.5); Eosinophils % (auto) 2.9 %; Hematocrit (blood only) 37.3 % (37-47); Hemoglobin 12.7 g/dL (12.0-16.0); Immature Granulocytes # (auto) 0.13 K/uL (0.00-0.02); Immature Granulocytes % (auto) 0.9 %; Lymphocytes # (auto) 2.95 K/uL (1.2-3.4); Lymphocytes % (auto) 21.2 %; Mean Corpuscular Hemoglobin 34.8 pg (25-34); Mean Corpuscular Volume 102.2 fL (80-100); Mean Platelet Volume 10.3 fL (7.4-10.4); Monocytes # (auto) 1.52 K/uL (0.11-0.59); Monocytes % (auto) 10.9 %; Neutrophils # (auto) 8.88 K/uL (1.4-6.5); Neutrophils % (auto) 63.8 %; Platelet Count 285 K/uL (130-400); RDW Coefficient of Variation 14.1 % (11.5-14.5); RDW Standard Deviation 52.6 fL (36.4-46.3); Red Blood Count 3.65 M/uL (4.2-5.4); White Blood Count 13.93 K/uL (4.8-10.8)
[2018-11-28] MEDS: IBUPROFEN 600 MG TAB PO PRN (08:21)
[2018-11-28] MEDS: PRENATAL VITAMIN 1 TAB PO SCH (08:22)
[2018-11-28] MEDS: DOCUSATE SODIUM 100 MG CAP PO SCH (08:22)
[2018-11-28] MEDS: LACTOBACILLUS ACIDOPHILUS (FLORANEX) TAB PO SCH (08:23)
[2018-11-28] MEDS: FERROUS SULFATE 325 MG TAB PO SCH (08:27)
[2018-11-28] MEDS ORDERED: MEASLES, MUMPS & RUBELLA VIRUS VIAL SQ ONE (09:41)
--- NOTE | 2018-11-28 09:41 | Obstetrical Progress Note ---
Date of Service November 28, 2018 Physical Exam Physical Exam: abdomen soft and non tender vaginal bleeding scant hgb 12.7 no calf tenderness ambulating well Results & Data Vital Signs (Past 12 Hours) Vital Signs Temp Pulse Resp BP 11/27/18 23:40 36.6 C 81 18 115/76
== END 2018-11-28 13:10 | disposition home or self-care (01) | DRG 807 ==
LOC: 4S1 07:31 → 4S2 11-26 17:10

== ENCOUNTER 2020-09-15 10:58 | Inpatient (IN) ==
[2020-09-15] MEDS ORDERED: LACTATED RINGER'S 1,000 ML IV PRN (13:08)
[2020-09-15] MEDS ORDERED: OXYTOCIN 30 UNITS/500 ML BAG IV PRN ×3 (13:08→17:54)
--- NOTE | 2020-09-15 13:14 | History & Physical Report ---
Date of Service September 15, 2020 Assessment & Plan (1) Labor, prolonged latent phase: Plan: 35-year-old -0-0-2 at 39 weeks and 3 days of gestation presenting with irregular contractions and prolonged latent phase since yesterday, vital signs stable afebrile, heart rate reassuring, GBS negative, No cervical change since last exam at the office, Discussed prolonged latent phase and options of either expectant management, labor on her own versus augmentation with low-dose Pitocin protocol and AROM. Patient desires augmentation with Pitocin and AROM and she also desires epidural for pain, Plan to admit, monitor, IV fluids, labs and start low-dose Pitocin per protocol Epidural for pain when patient desires, All questions were answered. 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 difficile colitis (~09/24/17) Endometriosis determined by laparoscopy (~04/27/15) Hypothyroidism (~12/02/12) Ovarian cyst (~02/02/08) Surgical History History of splenectomy (~11/16/10) Status post fecal microbiota transplant (~11/24/17) Social History Smoking Status: Current every day smoker Tobacco Type: Cigarettes Cigarettes Per Day: 10; Second Hand Exposure: Yes ( smokes); Do You Dip or Chew Tobacco: No; Hx Alcohol Use: No Hx Substance Use: No Preferred Language: Maltese Communication Ability: Effective Financial Adviser Required: No Beliefs That Will Affect Care: None marital status: Current Living Situation: Spouse Current Living Situation Comment: lives with and 2 children How many Children do You have: 2 Other Information That Helps Us Care for You: No Feels Safe at Home: Yes Safety Concerns: Feels Safe At This Time Assistive Devices: None OB History Full-term 's, in 2017 and 2019 [employer] History No history of STDs, no herpes, chlamydia, gonorrhea Review of Systems as per Subjective / HPI Physical Exam Constitutional: WD/WN, vitals as above well developed and well nourished Not in acute distress, comfortable Gastrointestinal (Abdomen): normal bowel sounds, soft, nontender, no hepatosplenomegaly (Gravid) Genitourinary: normal external appearance OB Exam Abdomen: + vertex Manual OB Exam: + cervical dilation 5 cm, + cervical effacement 70% and + station -2 OB Exam Monitor Tracing: + external uterine monitor used (Contractions every 12 to 17 minutes) and + category I Results & Data ([facility]) Vital Signs (Past 12 Hours) Vital Signs Pulse Resp BP 09/15/20 11:30 18 09/15/20 11:08 107 H 113/69
[2020-09-15 13:35] LABS: Hematocrit (blood only) 35.4 % (37-47); Hemoglobin 11.9 g/dL (12.0-16.0); Mean Corpuscular Hgb Conc 33.6 g/dL (32-36); Mean Corpuscular Volume 101.1 fL (80-100); Mean Platelet Volume 10.6 fL (7.4-10.4); Platelet Count 291 K/uL (130-400); RDW Standard Deviation 54.4 fL (36.4-46.3); White Blood Count 14.73 K/uL (4.8-10.8)
[2020-09-15] MEDS ORDERED: BUPIVACAINE 0.25% 30 ML VIAL ONE (14:46)
[2020-09-15] MEDS ORDERED: SODIUM CHLORIDE 0.9% INJ 10 ML VIAL ONE (14:46)
[2020-09-15] MEDS ORDERED: ePHEDrine sulfate 50 MG/ML AMP ONE (14:46)
[2020-09-15] MEDS ORDERED: fentaNYL citrate 100 MCG/2 ML VIAL ONE (14:46)
[2020-09-15] MEDS ORDERED: fentaNYL 2MCG/ML ROPIVACAINE 1.25MG/ML 100 ML BAG EPI ONE (14:47)
[2020-09-15] MEDS ORDERED: ePHEDrine sulfate 50 MG/ML AMP IV PRN (14:55)
[2020-09-15] MEDS ORDERED: NALOXONE HCL 1 MG in SODIUM CHLORIDE 0.9% 1000ML 1,000 ML IV PRN (14:55)
[2020-09-15] MEDS ORDERED: NALBUPHINE HCL INJ 10 MG/ML AMP IV PRN (14:55)
[2020-09-15] MEDS ORDERED: ONDANSETRON INJ 2 MG/ML 2 ML VIAL IV PRN (14:55)
[2020-09-15] MEDS ORDERED: NALOXONE HCL 0.4 MG/1 ML VIAL/CARP IV PRN (14:55)
[2020-09-15] MEDS ORDERED: diphenhydrAMINE 50 MG/ML VIAL IV PRN (14:55)
[2020-09-15] MEDS ORDERED: fentaNYL 2MCG/ML ROPIVACAINE 1.25MG/ML 100 ML BAG EPI PRN (14:55)
--- NOTE | 2020-09-15 15:16 | Anesthesiology Consultation ---
Date of Service September 15, 2020 Assessment & Plan (1) Encounter for pre-operative examination: Chart Review Chart Review: Patient NOT seen in Pre Admission Testing and Acceptable Risk for Labor Epidural Consults Requested none History Height/Weight Height: 5 ft 2 in Weight: 77.746 kg Allergies Allergy/AdvReac Type Severity Reaction Status Date / Time oxycodone AdvReac Intermediate VOMITING Verified 09/15/20 13:26 sertraline AdvReac Intermediate nausea/vomi Verified 09/15/20 13:26 ting albuterol AdvReac Mild tachycardia Verified 09/15/20 13:26 Medications Home Medications Medication Instructions Recorded Confirmed Last Taken escitalopram oxalate 20 mg tablet 20 mg PO DAILY 03/15/20 09/15/20 09/14/20 prenat.vits,anuj,ujr-pwpu-uyiei 1 tab PO DAILY 03/15/20 09/15/20 09/14/20 Active Medications Generic Name Dose Route Start Last Admin Trade Name Freq PRN Reason Stop Dose Admin Lactated Ringer's 1,000 mls @ 150 mls/hr 09/15/20 13:08 09/15/20 14:37 Lr IV 09/17/20 13:07 999 mls/hr .[id number] PRN Administration L&D Protocol Protocol Past Medical History Medical History (Updated 09/15/20 @ 15:16 by Kevin Rinaldi MD) Anxiety (~12/03/00) Asplenia C. difficile colitis (~09/24/17) Endometriosis determined by laparoscopy (~04/27/15) Hypothyroidism (~12/02/12) Ovarian cyst (~02/02/08) Exercise / Class Metabolic Activity II 4-5 Yardwork/Stairs/Walk up hill Past Surgical History Surgical History History of splenectomy (~11/16/10) Status post fecal microbiota transplant (~11/24/17) Past Anesthesia History No Hx of Anesthesia Complications and No Family Hx of Anesthesia Complications History of PONV No Hx of PONV and No Hx of Motion Sickness Social History Smoking Status: Current every day smoker tobacco type: cigarettes Smoking cigarettes per day: 10 Do You Dip or Chew Tobacco: No Hx Alcohol Use: No Hx Substance Use: No substance use type: does not use Physical Exam Vital Signs Last Vital Signs Pulse 107 H 09/15/20 11:08 Resp 18 09/15/20 11:30 BP 113/69 09/15/20 11:08 Testing Laboratory Results 09/15/20 13:17
--- NOTE | 2020-09-15 15:53 | Obstetrical Progress Note ---
Date of Service September 15, 2020 Assessment & Plan Admission and Anticipated Discharge Date Admission Date: September 15, 2020 Subjective Patient is reevaluated. She is comfortable now received epidural for pain. Vital signs stable afebrile, heart rate category 1, Cervix is 7 cm dilated, 70% effaced head at -1 station, AROM, minimal mucousy fluid, clear Continue to monitor, Anticipate . Results & Data ([facility]) Vital Signs (Past 12 Hours) Vital Signs Pulse Resp BP Pulse Ox 09/15/20 15:50 86 98 09/15/20 15:49 90 124/59 L 09/15/20 15:45 85 94 09/15/20 15:40 95 H 97 09/15/20 15:35 94 H 97 09/15/20 15:30 80 98 09/15/20 15:27 76 106/55 L 09/15/20 15:25 85 113/57 L 96 09/15/20 15:23 88 102/59 L 09/15/20 15:21 80 103/57 L 09/15/20 15:19 81 108/61 09/15/20 15:17 70 109/65 09/15/20 15:15 77 111/59 L 09/15/20 11:30 18 09/15/20 11:08 107 H 113/69
[2020-09-15] MEDS ORDERED: MINERAL OIL 30 ML UDC ONE (17:31)
[2020-09-15] MEDS ORDERED: BENZOCAINE 20% AER SPR 82.5 GM CAN EXT PRN (17:54)
[2020-09-15] MEDS ORDERED: bisacodyL 10 MG SUPP PR PRN (17:54)
[2020-09-15] MEDS ORDERED: SUPERCREAM 0.870% 15 GM JAR EXT PRN (17:54)
[2020-09-15] MEDS ORDERED: ACETAMINOPHEN 325 MG TAB PO PRN (17:54)
[2020-09-15] MEDS ORDERED: HYDROCORTISONE ACETATE 25 MG SUPP PR PRN (17:54)
--- NOTE | 2020-09-15 18:43 | Delivery Summary ---
DATE OF DELIVERY: 09/15/2020 TIME: 1734 p.m. DETAILS OF DELIVERY: The patient was found to be fully dilated and desired to push. She pushed through 3 contractions only, delivered the head without difficulty. Shoulders were delivered with minimal traction. Baby was handed to the mother where mouth and nose were suctioned. Cord was clamped x2 and cut. Cord blood was obtained and then placenta was found to be in the vagina, delivered spontaneous as intact and complete. Uterus was explored and was found to be empty. Lower segment was cleared of all clots and debris. Fundus was firm. EBL was 200 mL. Vagina and perineum were checked for lacerations. There was a small first-degree laceration at the posterior fourchette. It was repaired with 2-0 Vicryl in a running locked fashion. Excellent hemostasis was achieved. Rest of the vagina was intact. Mom and baby tolerated the procedure well. Sponge, lap, and needle count was correct x2. Baby was a viable male infant, Apgars 8/9, weight is 3464 gr. No complications happened. I was present during the whole procedure. Job ID: [id number] [facility]
--- NOTE | 2020-09-15 19:25 | Anesthesia Procedure Note ---
Date of Service September 15, 2020 Anesthesia Post Epidural Note Vital Signs Vital Signs: Pulse Resp BP Pulse Ox 72 18 115/63 99 09/15/20 19:18 09/15/20 19:18 09/15/20 19:18 09/15/20 17:30 Pain Intensity Episiotomy/Laceration: Pain Intensity: 3 Notes Mental Status: alert / awake / arousable Patient Amnestic to Procedure: No Nausea / Vomiting: adequately controlled Pain: adequately controlled Airway Patency, RR, SpO2: stable & adequate BP & HR: stable & adequate Hydration State: stable & adequate Neuraxial Anesthesia: was administered and sensory block is resolving Anesthetic Complications: no major complications apparent and Pt Satisfied with anesthetic care Epidural: Removed without complications and With tip intact
[2020-09-15] MEDS: IBUPROFEN 600 MG TAB PO PRN ×2 (19:27→23:32)
[2020-09-15] MEDS: DOCUSATE SODIUM 100 MG CAP PO SCH (20:48)
[2020-09-16 06:42] LABS: Hematocrit (blood only) 33.6 % (37-47); Hemoglobin 11.1 g/dL (12.0-16.0); Mean Corpuscular Hemoglobin 33.4 pg (25-34); Mean Corpuscular Volume 101.2 fL (80-100); Mean Platelet Volume 10.7 fL (7.4-10.4); Platelet Count 279 K/uL (130-400); RDW Standard Deviation 54.6 fL (36.4-46.3); Red Blood Count 3.32 M/uL (4.2-5.4); White Blood Count 16.21 K/uL (4.8-10.8)
[2020-09-16] MEDS ORDERED: PRENATAL VITAMIN 1 TAB PO SCH (08:00)
[2020-09-16] MEDS ORDERED: FERROUS SULFATE 325 MG TAB PO SCH (08:00)
[2020-09-16] MEDS: IBUPROFEN 600 MG TAB PO PRN ×2 (08:15→15:50)
[2020-09-16] MEDS ORDERED: DIPHTHERIA/TETANUS/PERTUSSIS 0.5 ML SYR/VIAL IM ONE (09:00)
[2020-09-16] MEDS ORDERED: NICOTINE 7 MG/24 HR TDSY TD SCH (09:00)
[2020-09-16] MEDS ORDERED: ESCITALOPRAM OXALATE 20 MG TAB PO SCH (09:00)
[2020-09-16] MEDS ORDERED: MEASLES, MUMPS & RUBELLA VIRUS VIAL SQ ONE (09:00)
--- NOTE | 2020-09-16 09:20 | Obstetrical Progress Note ---
Date of Service September 16, 2020 Subjective Ambulation: ambulating normally Voiding: no voiding problems Passing Gas:: Yes Diet Tolerance:: regular diet Feeding Type:: breast feeding Current Pain Level(1-10): 0 planning for discharge today. feels good Physical Exam Constitutional WD/WN, vitals as above comfortable abdomen soft and non-tender. fundus firm Results & Data ([facility]) Vital Signs (Past 12 Hours) Vital Signs Temp Pulse Resp BP Pulse Ox 09/16/20 07:25 36.5 C 69 16 98/64 L 97 09/16/20 04:35 37.0 C 80 18 106/70 09/15/20 23:25 37.2 C 71 18 110/69
[2020-09-16] MEDS: DOCUSATE SODIUM 100 MG CAP PO SCH (09:21)
[2020-09-16] MEDS ORDERED: bisacodyL 5 MG TABEC PO SCH (20:00)
== END 2020-09-16 18:45 | disposition home or self-care (01) | DRG 807 ==
LOC: OPB 10:58 → 4S2 10:59 → 4S1 13:33 → 4S2 20:16

== ENCOUNTER 2021-08-05 11:08 | Inpatient (IN) ==
[2021-08-05] MEDS ORDERED: ACETAMINOPHEN 1,000 MG/100 ML VIAL IV STA (11:34)
[2021-08-05] MEDS ORDERED: CHLORASEPTIC 1.4% SOLN 180 ML BTL MT PRN (11:34)
[2021-08-05] MEDS ORDERED: SODIUM CHLORIDE 0.9% 1000ML 1,000 ML IV SCH (11:35)
--- NOTE | 2021-08-05 11:43 | Emergency Department Note ---
Impression & Plan Pharyngitis, Febrile, Pharyngeal abscess, Tachycardia ED Provider Note CHIEF COMPLAINT: Sore throat HISTORY OF PRESENT ILLNESS: Dayanna Mirza is a 35 year old female with history of splenectomy in 2010, hypothyroidism, endometriosis, anxiety, among others listed below who presents to the Emergency Department for evaluation of worsening pain to her throat since yesterday. Prior to the time of onset, the patient states that she began with generalized body aches followed by the sore throat, which has become progressively worse and now radiates into her bilateral ears and head. Currently, she rates her discomfort as a 9/10 which worsens with attempts of swallowing. The patient has also had intermittent fevers with t-max 104F yesterday. She did take ibuprofen and Tylenol last evening which she states her fever did respond to, however, she has not been able to take any medications yet today due to the severity of her throat pain when attempting to swallow. The patient does state that she has some nasal congestion but otherwise denies cough, chest pain, respiratory difficulties, abdominal pain, nausea, vomiting, diarrhea or urinary symptoms. The patient is vaccinated for both COVID-19 and influenza. She also received all vaccines after undergoing the splenectomy. She does state that her children have recently been ill with conjunctivitis. REVIEW OF SYSTEMS: 10 systems were reviewed and were negative unless otherwise stated in HPI as above PHYSICAL EXAM: VITALS: Vitals are noted on the nurse's note and reviewed by myself. Tachycardic and febrile General: Resting in bed, appears very tired and uncomfortable, flushed and mildly diaphoretic HEENT: Normocephalic, PERRL, EOMI, bilateral TMs clear without bulging or effusion, mucous membranes moist, edema and erythema to the posterior oropharynx and tonsils with white exudates, no visible abscess. No drooling, stridor, trismus, wheezing, or tripoding. Normal phonation. Neck: Supple, bilateral cervical lymphadenopathy with tenderness to palpation, ROM intact without meningismus Resp: Good inspiratory effort on room air, lung sounds clear bilaterally, chest wall non-tender CV: Tachycardic rate, regular rhythm, peripheral pulses palpated Back: Generalized tenderness to palpation, no specific midline or CVA tenderness Abd: Soft, non-distended, non-tender to palpation MSK: Moving all extremities without apparent pain or difficulty Integumentary: Flushed and mildly diaphoretic, no appreciable rash Neuro: Awake, alert and oriented x 3, interacting and answering questions appropriately Differential diagnosis includes but is not limited to viral syndrome, tonsillitis, streptococcal pharyngitis, mononucleosis, peritonsillar abscess, retropharyngeal abscess, otitis, pneumonia, influenza, as well as other p athologies. EMERGENCY DEPARTMENT COURSE: Physical exam and history were performed. Nursing triage notes, EMR, and medication list were personally reviewed. Patient appears to have worsening pain to her throat radiating to her bilateral ears with associated headache, generalized body aches and fevers. Additional history as described above. See physical exam as noted above. Continuous security monitor: Order was placed for continuous security monitor. Patient was placed on the security monitor. Patient was noted to be in sinus tachycardia at an initial rate of 144 bpm. EKG was obtained and reviewed by myself. This did show sinus tachycardia at 127 bpm. There was a nonspecific T wave abnormality in the inferior and anterolateral leads. No ectopy or concern for acute ischemic change. When compared to EKG from 12/09/2019, T wave abnormalities are now evident. The patient was offered medications. IV access was established and she was given NSS 1 L, Tylenol 1000 mg and Chloraseptic spray. Labs were obtained and reviewed by myself as below. Of note, she was noted to have leukocytosis with a WBC of 28.16. With neutropenic shift of 23.80. No concern for anemia with hemoglobin 13.5. Electrolytes WNL. Renal indices stable. LFTs WNL. Lactate not elevated at 0.4. Procalcitonin not elevated at 0.29. The patient was tested for COVID19, influenza A/B and RSV, all of which were negative. Group A beta strep also negative. Monospot negative, EBV pending. Lyme testing negative. Anaplasmosis and Babesia pending. The patient was reevaluated several times throughout her emergency department course. She continued to remain tachycardic in the 120s despite given the fl uids and medications. I am concerned about the source of her leukocytosis given the remainder of her work-up was negative so far. Her exam findings are concerning for pharyngitis with edema, erythema and white exudates to the posterior oropharynx and tonsils. I do feel that she would benefit from starting broad-spectrum antibiotics and obtaining a soft tissue neck CAT scan for further evaluation. The patient was given an additional NSS 1L and was started on Cefepime and Vancomycin. She was also given Decadron 10 mg IV and Toradol [address] soft tissue neck was obtained and reviewed by radiologist myself as below. This did show a large abscess in the pharyngeal tonsils with enlargement of the bilateral palatine tonsils. Lymphadenopathy in the bilateral cervical chains. I did discuss the above findings with the patient at bedside. I then contacted Dr. Woodard of ENT. He agreed to evaluate the patient at bedside for a laryngoscope and to contact the hospitalist service for ongoing management in the hospital. I did contact Dr. Garcia of the [facility] hospitalist service. He agreed to evaluate the patient. The patient verbalized her understanding and agreement with the treatment plan as above. The chart was completed utilizing [employer] Speech Voice Recognition Software. Grammatical errors, random word insertions, pronoun errors, and incomplete sentences are an occasional consequence of this system due to software limitations, ambient noise, and hardware issues. Any formal questions or concerns about the content, text, or information contained within the body of t his dictation should be directly addressed to the provider for clarification. Past Med/Surg History Medical History (Updated 08/05/21 @ 18:53 by Loida Man PA-C) Anxiety (~12/03/00) Asplenia C. difficile colitis (~09/24/17) Endometriosis determined by laparoscopy (~04/27/15) Hypothyroidism (~12/02/12) Ovarian cyst (~02/02/08) Surgical History History of splenectomy (~11/16/10) Status post fecal microbiota transplant (~11/24/17) Social History Smoking Status: Current every day smoker Tobacco Type: Cigarettes Cigarettes Per Day: 10; Second Hand Exposure: Yes; Hx Alcohol Use: No Hx Substance Use: No Preferred Language: Congolese Communication Ability: Effective Art History Instructor Required: No Beliefs That Will Affect Care: None marital status: Current Living Situation: Spouse Current Living Situation Comment: lives with and 2 children How many Children do You have: 2 Feels Safe at Home: Yes Assistive Devices: None Allergies Allergies Allergy/AdvReac Type Severity Reaction Status Date / Time oxycodone AdvReac Intermediate VOMITING Verified 08/05/21 15:08 sertraline AdvReac Intermediate nausea/vomi Verified 08/05/21 15:08 ting albuterol AdvReac Mild tachycardia Verified 08/05/21 15:08 Home Meds Home Medications Medication Instructions Recorded Confirmed prenat.vits,anuj,uom-grjh-lqhzh 1 tab PO DAILY 03/15/20 08/05/21 Lactobacillus acidophilus 10 10,000 mmu cells PO DAILY 08/05/21 08/05/21 billion cell capsule (Probiotic) bupropion HCl 150 mg tablet,12 hr 150 mg PO BID 08/05/21 08/05/21 sustained-release norgestimate-ethinyl estradiol 1 tab PO DAILY 08/05/21 08/05/21 0.18 mg/0.215mg/0.25mg-35 mcg(28)tablet (Tri-Sprintec (28)) Previous Rx's Medication Instructions Recorded ibuprofen 600 mg tablet 600 mg PO Q4H PRN #30 tab 09/16/20 Results & Data (ED) Vital Signs Vital Signs - 24 hr 08/05/21 11:13 08/05/21 12:03 08/05/21 12:30 Temperature 38.1 C H Temperature Source Oral Pulse Rate 144 H 139 H 125 H Pulse Rate [Apical] Pulse Rhythm Regular Respiratory Rate 18 21 26 H Respiratory Effort / Characteristics Non-Labored Spontaneous Respiratory Depth Normal Blood Pressure 102/68 Blood Pressure [Left Arm] Blood Pressure Mean 79 Blood Pressure Mean [Left Arm] Blood Pressure Position Sitting Pulse Oximetry 100 Oxygen Delivery Method Room Air Sepsis Recent Fever Within 48 Hours Yes Sepsis New/Unexplained Change in Mental Status N/A Sepsis Action Taken by Nursing No Action Required 08/05/21 13:00 08/05/21 13:08 08/05/21 13:30 Temperature Temperature Source Pulse Rate 124 H 117 H Pulse Rate [Apical] 114 H Pulse Rhythm Respiratory Rate 23 19 24 Respiratory Effort / Characteristics Respiratory Depth Blood Pressure Blood Pressure [Left Arm] 104/56 L Blood Pressure Mean Blood Pressure Mean [Left Arm] 72 Blood Pressure Position Pulse Oximetry 96 Oxygen Delivery Method Room Air Sepsis Recent Fever Within 48 Hours Sepsis New/Unexplained Change in Mental Status Sepsis Action Taken by Nursing 08/05/21 13:31 08/05/21 14:00 08/05/21 14:30 Temperature Temperature Source Pulse Rate 112 H 116 H 125 H Pulse Rate [Apical] Pulse Rhythm Respiratory Rate 16 14 13 Respiratory Effort / Characteristics Respiratory Depth Blood Pressure 104/56 L Blood Pressure [Left Arm] Blood Pressure Mean 72 Blood Pressure Mean [Left Arm] Blood Pressure Position Pulse Oximetry Oxygen Delivery Method Sepsis Recent Fever Within 48 Hours Sepsis New/Unexplained Change in Mental Status Sepsis Action Taken by Nursing 08/05/21 14:55 Temperature 38.3 C H Temperature Source Oral Pulse Rate Pulse Rate [Apical] Pulse Rhythm Respiratory Rate Respiratory Effort / Characteristics Respiratory Depth Blood Pressure Blood Pressure [Left Arm] Blood Pressure Mean Blood Pressure Mean [Left Arm] Blood Pressure Position Pulse Oximetry Oxygen Delivery Method Sepsis Recent Fever Within 48 Hours Sepsis New/Unexplained Change in Mental Status Sepsis Action Taken by Nursing Laboratory Data Result diagrams: 08/05/21 11:46 08/05/21 11:46 Lab Results 08/05/21 08/05/21 08/05/21 Range/Units 11:46 11:46 11:46 WBC 28.16 H (4.8-10.8) K/uL RBC 4.10 L (4.2-5.4) M/uL Hgb 13.5 (12.0-16.0) g/dL Hct 40.8 (37-47) % MCV 99.5 (80-100) fL MCH 32.9 (25-34) pg MCHC 33.1 (32-36) g/dL RDW Std Deviation 51.0 H (36.4-46.3) fL RDW Coeff of Tracey 14.0 (11.5-14.5) % Plt Count 377 (130-400) K/uL MPV 9.6 (7.4-10.4) fL Immature Gran % (Auto) 0.6 % Neut % (Auto) 84.6 % Lymph % (Auto) 8.9 % Dupage % (Auto) 5.7 % Eos % (Auto) 0.0 % Baso % (Auto) 0.2 % Neut # (Auto) 23.80 H (1.4-6.5) K/uL Lymph # (Auto) 2.52 (1.2-3.4) K/uL Dupage # (Auto) 1.60 H (0.11-0.59) K/uL Eos # (Auto) 0.01 (0-0.5) K/uL Baso # (Auto) 0.05 (0-0.2) K/uL Immature Gran # (Auto) 0.18 H (0.00-0.02) K/uL Sodium 136 (136-145) mmol/L Potassium 3.8 (3.5-5.1) mmol/L Chloride 104 (98-107) mmol/L Carbon Dioxide 24 (21-32) mmol/L Anion Gap 8 (3-11) BUN 8 (6-23) mg/dl Creatinine 1.14 (0.6-1.2) mg/dl Est Cr Clr Drug Dosing 61.2 ml/min Est GFR ( Amer) 73.2 ml/min Est GFR (Non-Af Amer) 63.1 ml/min BUN/Creatinine Ratio 7.0 L (10-20) Glucose 104 H (70-99(Fasting)) mg/dl Lactate (0.4-2.0) mmol/L Calcium 9.6 (8.5-10.1) mg/dl Total Bilirubin 0.3 (0.2-1.0) mg/dl AST 14 (13-39) U/L ALT 17 (7-52) U/L Alkaline Phosphatase 70 (34-104) U/L Total Protein 7.4 (6.0-8.3) gm/dl Albumin 4.4 (3.4-5.0) gm/dl Globulin 3.0 (2.5-4.0) gm/dl Albumin/Globulin Ratio 1.5 (0.9-2) Procalcitonin (0-0.5) ng/ml Anaplasma Smear See Comment Babesia Smear See Comment Lyme Disease IgG Ab (Negative) Lyme Disease IgM Ab (Negative) SARS-CoV-2 (PCR) (Negative) Monoscreen Negative (Negative) Influenza Type A (PCR) (Neg) Influenza Type B (PCR) (Neg) RSV (RT-PCR) (Neg) Group A Strep (PCR) (NotDetected) 08/05/21 08/05/21 08/05/21 Range/Units 11:46 11:46 11:58 WBC (4.8-10.8) K/uL RBC (4.2-5.4) M/uL Hgb (12.0-16.0) g/dL Hct (37-47) % MCV (80-100) fL MCH (25-34) pg MCHC (32-36) g/dL RDW Std Deviation (36.4-46.3) fL RDW Coeff of Tracey (11.5-14.5) % Plt Count (130-400) K/uL MPV (7.4-10.4) fL Immature Gran % (Auto) % Neut % (Auto) % Lymph % (Auto) % Dupage % (Auto) % Eos % (Auto) % Baso % (Auto) % Neut # (Auto) (1.4-6.5) K/uL Lymph # (Auto) (1.2-3.4) K/uL Dupage # (Auto) (0.11-0.59) K/uL Eos # (Auto) (0-0.5) K/uL Baso # (Auto) (0-0.2) K/uL Immature Gran # (Auto) (0.00-0.02) K/uL Sodium (136-145) mmol/L Potassium (3.5-5.1) mmol/L Chloride (98-107) mmol/L Carbon Dioxide (21-32) mmol/L Anion Gap (3-11) BUN (6-23) mg/dl Creatinine (0.6-1.2) mg/dl Est Cr Clr Drug Dosing ml/min Est GFR ( Amer) ml/min Est GFR (Non-Af Amer) ml/min BUN/Creatinine Ratio (10-20) Glucose (70-99(Fasting)) mg/dl Lactate (0.4-2.0) mmol/L Calcium (8.5-10.1) mg/dl Total Bilirubin (0.2-1.0) mg/dl AST (13-39) U/L ALT (7-52) U/L Alkaline Phosphatase (34-104) U/L Total Protein (6.0-8.3) gm/dl Albumin (3.4-5.0) gm/dl Globulin (2.5-4.0) gm/dl Albumin/Globulin Ratio (0.9-2) Procalcitonin 0.29 (0-0.5) ng/ml Anaplasma Smear Babesia Smear Lyme Disease IgG Ab Negative (Negative) Lyme Disease IgM Ab Negative (Negative) SARS-CoV-2 (PCR) NEGATIVE (Negative) Monoscreen (Negative) Influenza Type A (PCR) Negative (Neg) Influenza Type B (PCR) Negative (Neg) RSV (RT-PCR) Negative (Neg) Group A Strep (PCR) (NotDetected) 08/05/21 08/05/21 Range/Units 11:58 13:49 WBC (4.8-10.8) K/uL RBC (4.2-5.4) M/uL Hgb (12.0-16.0) g/dL Hct (37-47) % MCV (80-100) fL MCH (25-34) pg MCHC (32-36) g/dL RDW Std Deviation (36.4-46.3) fL RDW Coeff of Tracey (11.5-14.5) % Plt Count (130-400) K/uL MPV (7.4-10.4) fL Immature Gran % (Auto) % Neut % (Auto) % Lymph % (Auto) % Dupage % (Auto) % Eos % (Auto) % Baso % (Auto) % Neut # (Auto) (1.4-6.5) K/uL Lymph # (Auto) (1.2-3.4) K/uL Dupage # (Auto) (0.11-0.59) K/uL Eos # (Auto) (0-0.5) K/uL Baso # (Auto) (0-0.2) K/uL Immature Gran # (Auto) (0.00-0.02) K/uL Sodium (136-145) mmol/L Potassium (3.5-5.1) mmol/L Chloride (98-107) mmol/L Carbon Dioxide (21-32) mmol/L Anion Gap (3-11) BUN (6-23) mg/dl Creatinine (0.6-1.2) mg/dl Est Cr Clr Drug Dosing ml/min Est GFR ( Amer) ml/min Est GFR (Non-Af Amer) ml/min BUN/Creatinine Ratio (10-20) Glucose (70-99(Fasting)) mg/dl Lactate 0.4 (0.4-2.0) mmol/L Calcium (8.5-10.1) mg/dl Total Bilirubin (0.2-1.0) mg/dl AST (13-39) U/L ALT (7-52) U/L Alkaline Phosphatase (34-104) U/L Total Protein (6.0-8.3) gm/dl Albumin (3.4-5.0) gm/dl Globulin (2.5-4.0) gm/dl Albumin/Globulin Ratio (0.9-2) Procalcitonin (0-0.5) ng/ml Anaplasma Smear Babesia Smear Lyme Disease IgG Ab (Negative) Lyme Disease IgM Ab (Negative) SARS-CoV-2 (PCR) (Negative) Monoscreen (Negative) Influenza Type A (PCR) (Neg) Influenza Type B (PCR) (Neg) RSV (RT-PCR) (Neg) Group A Strep (PCR) NOT DETECTED (NotDetected) Administered Medications Phenol (Chloraseptic 1.4% Soln 180 Ml Btl) 2 sprays MT Q2H PRN PRN Reason: Sore Throat Stop: 09/04/21 11:33 Last Admin: 08/05/21 12:18 Dose: 2 sprays Documented by: [id number] Discontinued Medications Dexamethasone Sodium Phosphate (DexamethasonePf 10 Mg/Ml Vial) 10 mg IV NOW ONE Stop: 08/05/21 16:28 Last Admin: 08/05/21 16:44 Dose: 10 mg Documented by: [id number] Sodium Chloride (Nss 1000ml) 1,000 mls @ 999 mls/hr IV .Q1H1M KEITH Stop: 08/05/21 12:35 Last Infusion: 08/05/21 12:52 Dose: 0 mls/hr Documented by: [id number] Admin: 08/05/21 11:51 Dose: 999 mls/hr Documented by: [id number] Acetaminophen (Ofirmev) 1,000 mg in 100 mls @ 400 mls/hr IV NOW STA Stop: 08/05/21 11:48 Last Infusion: 08/05/21 12:09 Dose: 0 mls/hr Documented by: [id number] Admin: 08/05/21 11:54 Dose: 400 mls/hr Documented by: [id number] Sodium Chloride (Nss 1000ml) 1,000 mls @ 999 mls/hr IV .Q1H1M ONE Stop: 08/05/21 14:31 Last Infusion: 08/05/21 15:51 Dose: 0 mls/hr Documented by: [id number] Admin: 08/05/21 14:49 Dose: 999 mls/hr Documented by: [id number] Vancomycin HCl 1,250 mg/ (Sodium Chloride) 525 mls @ 200 mls/hr IV NOW ONE Stop: 08/05/21 16:09 Last Infusion: 08/05/21 18:02 Dose: 0 mls/hr Documented by: [id number] Admin: 08/05/21 14:50 Dose: 200 mls/hr Documented by: [id number] Cefepime HCl (Maxipime) 2,000 mg in 20 mls @ 5 mls/min IV NOW STA; Protocol Stop: 08/05/21 13:35 Last Admin: 08/05/21 14:50 Dose: 5 mls/min Documented by: [id number] Ioversol (Optiray 320 100ml) 94 ml IV ONCE ONE Stop: 08/05/21 14:12 Last Admin: 08/05/21 14:12 Dose: 94 ml Documented by: [id number] Ketorolac Tromethamine (Ketorolac Tromethamine 15 Mg/Ml Vial) 15 mg IV NOW ONE Stop: 08/05/21 15:31 Last Admin: 08/05/21 16:02 Dose: 15 mg Documented by: [id number] Imaging Data Radiologist's Impression: Soft Tissue Neck CT 08/05/21 13:30 CT soft tissue neck w con CLINICAL HISTORY: Sore throat, difficulty swallowing, eval for infec Technique: Axial CT images of the soft tissues of the neck were obtained following intravenous administration of 100 cc of Omnipaque 300. Automated dose lowering techniques and/or adjustment according to patient size were utilized for this exam. CT DOSE: 435.64 mGy.cm Comparison: Comparison is made to CT soft tissue neck 02/09/2013 Findings: A large rim-enhancing lesion is seen in the pharyngeal tonsil. There is mild enlargement and enhancement of the bilateral palatine tonsils without definite drainable collection. The nasopharynx is occluded. The oropharynx is narrowed bu t patent. Subcentimeter lymph nodes are seen in the cervical station. In addition, there are bilateral enlarged lymph nodes measuring up to 13 mm. The parotid glands, submandibular glands, and thyroid gland are unremarkable. Imaged portions of the brain parenchyma are unremarkable. The paranasal sinuses and mastoid air cells are normal in appearance. Impression: A large abscess is seen in the pharyngeal tonsil. There is enlargement of the bilateral palatine tonsils without evidence of drainable fluid collection. Lymphadenopathy is seen in the bilateral cervical chains. The nasopharynx is occluded, the oropharynx is narrowed but patent. ACT 112: Negative or not required by law. Electronically signed by: Kenneth Ralph M.D. 08/05/2021 2:32 PM Discharge Plan Visit Data Chief Complaint: Fever Stated Complaint: HIGH FEVER/BODY ACHES/CAN'T SWALLOW ED Provider: Alex Ash ED Midlevel Provider: Loida Man Discharge Problem: Pharyngitis, Febrile, Pharyngeal abscess, Tachycardia Patient Disposition: Admitted As Inpatient Discharge Instructions Interventions: ED Discharge Assessment Last Done: 08/05/21 18:01
[2021-08-05 12:35] LABS: Hematocrit (blood only) 40.8 % (37-47); Hemoglobin 13.5 g/dL (12.0-16.0); Mean Corpuscular Hemoglobin 32.9 pg (25-34); Mean Corpuscular Hgb Conc 33.1 g/dL (32-36); Mean Corpuscular Volume 99.5 fL (80-100); Mean Platelet Volume 9.6 fL (7.4-10.4); Platelet Count 377 K/uL (130-400); White Blood Count 28.16 K/uL (4.8-10.8)
[2021-08-05 12:47] LABS: Albumin Globulin Ratio 1.5 (0.9-2); Albumin Level 4.4 gm/dl (3.4-5.0); Bilirubin,Total 0.3 mg/dl (0.2-1.0); Calcium 9.6 mg/dl (8.5-10.1); Creatinine Clr Calc Pharmacy 61.2 ml/min; Est GFR (African American) 73.2 ml/min; Est GFR (Non-African American) 63.1 ml/min; Potassium 3.8 mmol/L (3.5-5.1); Total Protein 7.4 gm/dl (6.0-8.3)
[2021-08-05 13:03] LABS: Basophils # (auto) 0.05 K/uL (0-0.2); Basophils % (auto) 0.2 %; Eosinophils # (auto) 0.01 K/uL (0-0.5); Immature Granulocytes # (auto) 0.18 K/uL (0.00-0.02); Immature Granulocytes % (auto) 0.6 %; Lymphocytes # (auto) 2.52 K/uL (1.2-3.4); Lymphocytes % (auto) 8.9 %; Monocytes % (auto) 5.7 %; Neutrophils % (auto) 84.6 %
[2021-08-05 13:19] LABS: Influenza A virus by PCR Negative (Neg); Influenza B virus by PCR Negative (Neg); RSV by PCR Negative (Neg); SARS CoV2 RNA(COVID-19) InHosp NEGATIVE (Negative)
[2021-08-05] MEDS ORDERED: SODIUM CHLORIDE 0.9% 1000ML 1,000 ML IV ONE (13:31)
[2021-08-05] MEDS ORDERED: VANCOMYCIN HCL 1,250 MG in SODIUM CHLORIDE 0.9% 500 ML IV ONE (13:32)
[2021-08-05] MEDS ORDERED: VANCOMYCIN CONSULT ACTIVE PRN (13:32)
[2021-08-05] MEDS ORDERED: CEFEPIME 2,000 MG/20 ML VIAL IV STA (13:32)
[2021-08-05] MEDS ORDERED: OPTIRAY 320 100ml IV ONE (14:11)
--- NOTE | 2021-08-05 14:34 | CT Scan Report ---
CT soft tissue neck w con CLINICAL HISTORY: Sore throat, difficulty swallowing, eval for infec Technique: Axial CT images of the soft tissues of the neck were obtained following intravenous admini stration of 100 cc of Omnipaque 300. Automated dose lowering techniques and/or adjustment according t o patient size were utilized for this exam. CT DOSE: 435.64 mGy.cm Comparison: Comparison is made to CT soft tissue neck 02/09/2013 Findings: A large rim-enhancing lesion is seen in the pharyngeal tonsil. There is mild enlargement and enhancem ent of the bilateral palatine tonsils without definite drainable collection. The nasopharynx is occlu ded. The oropharynx is narrowed but patent. Subcentimeter lymph nodes are seen in the cervical statio n. In addition, there are bilateral enlarged lymph nodes measuring up to 13 mm. The parotid glands, s ubmandibular glands, and thyroid gland are unremarkable. Imaged portions of the brain parenchyma are unremarkable. The paranasal sinuses and mastoid air cell s are normal in appearance. Impression: A large abscess is seen in the pharyngeal tonsil. There is enlargement of the bilateral palatine tons ils without evidence of drainable fluid collection. Lymphadenopathy is seen in the bilateral cervical chains. The nasopharynx is occluded, the oropharynx is narrowed but patent. ACT 112: Negative or not required by law. Electronically signed by: Kenneth Ralph M.D. 08/05/2021 2:32 PM
--- NOTE | 2021-08-05 15:11 | Emergency Department Note ---
ED Visit Note Physician Evaluation Note: Patient was seen in conjunction with the physician educational program assistant. Please see the physician educational program assistant note for full details of the visit. I have personally evaluated and examined this patient. I performed a substantive portion of the patient visit including medical decision making and interpretation of diagnostic studies. Patient presented to the emergency room with chief complaint of throat pain and fever, she states she is also had myalgias. Of note, patient does have medical history of splenectomy. On my examination the patient is in no acute distress, states that she developed fevers and throat pain over the past several days. States she has had some mild difficulty swallowing. CT imaging of the neck was performed with IV contrast that shows evidence of a pharyngeal abscess. Patient does have a significant leukocytosis, patient was started on IV antibiotics, blood cultures were drawn, otolaryngology attending, Dr. Woodard, was consulted and evaluated the patient at the bedside, will plan for admission to the hospitalist service for further care and otolaryngology consultation. Patient was in agreement to the above plan and she was admitted in stable condition for further care. I agree with assessment and plan of SAMUEL Mast DO .
[2021-08-05 15:23] LABS: Lyme Ab IgG w/WB Rflx Negative (Negative); Lyme Ab IgM w/WB Rflx Negative (Negative)
[2021-08-05] MEDS ORDERED: KETOROLAC TROMETHAMINE 15 MG/ML VIAL IV ONE (15:30)
[2021-08-05] MEDS ORDERED: MAGNESIUM HYDROXIDE SUSP 30 ML UDC PO PRN (16:26)
[2021-08-05] MEDS ORDERED: dexAMETHasone**PF** 10 MG/ML VIAL IV ONE (16:27)
--- NOTE | 2021-08-05 16:34 | ENT Consultation ---
Date of Consultation August 05, 2021 Assessment & Plan (1) Pharyngitis: -As she has not had any medical treatment prior to arrival to the ED today and the sore throat is of 12 hrs duration, recommend medical management with IV abx and decadron. Would recommend 10mg of decadron q8 hrs. - her examination and her CT scan appear rather classic for mono (although mono spot was negative, EBV titers are pending) - Would keep NPO after midnight until I am able to re-examine her tomorrow morning. - If does not improve clinically on antibiotics and steroids could consider trial or I&D of adenoid pad ( although would be extremely uncommon to have a drainable collection within the adenoid tissue) (2) Nasopharyngitis: see above History of Present Illness Reason for Consultation: Pharyngeal edema/Pharyngotonsillitis History of Present Illness 35 yo female who presented today to the ED with a 12 hr history of a sore throat . She states that Friday she started with some body aches and pain. Then last night started to notice a sore throat. She came to the ED due to some dysphagia. A CT was performed which revealed diffuse pharyngeal lymphoid hyperplasia. I reviewed the images which showed palatine tonsillar swelling without peritonsillar abscess. The adenoid pad was large and obstructing the entire nasopharynx with edema and what appears to be some phlegmonous change to the adenoid pad. She has not been treated with any medications prior to arrival to the ED. She does not suffer from recurrent tonsillitis or strep throat. She denies any difficulty breathing. Allergies Allergy/AdvReac Type Severity Reaction Status Date / Time oxycodone AdvReac Intermediate VOMITING Verified 08/05/21 15:08 sertraline AdvReac Intermediate nausea/vomi Verified 08/05/21 15:08 ting albuterol AdvReac Mild tachycardia Verified 08/05/21 15:08 Home Medications Medication Instructions Recorded Confirmed Type prenat.vits,anuj,kue-yyid-cldxm 1 tab PO DAILY 03/15/20 08/05/21 History ibuprofen 600 mg tablet 600 mg PO Q4H PRN #30 tab 09/16/20 08/05/21 Rx Lactobacillus acidophilus 10 10,000 mmu cells PO DAILY 08/05/21 08/05/21 History billion cell capsule (Probiotic) bupropion HCl 150 mg tablet,12 hr 150 mg PO BID 08/05/21 08/05/21 History sustained-release norgestimate-ethinyl estradiol 1 tab PO DAILY 08/05/21 08/05/21 History 0.18 mg/0.215mg/0.25mg-35 mcg(28)tablet (Tri-Sprintec (28)) Patient History Medical History (Updated 08/05/21 @ 16:40 by Pramod Woodard DO) Anxiety (~12/03/00) Asplenia C. 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 No acute distress Eyes: EOMI ENMT: Bilateral exudative tonsils (3+). Uvula midline. No pharyngeal wall edema noted. Neck: Range of motion normal. No restriction Lymphatic: Bilateral cervical adenopathy palpable in level 2 Results & Data ([facility]) Vital Signs (Past 12 Hours) Vital Signs Temp Pulse Pulse Resp BP BP Pulse Ox 08/05/21 14:55 38.3 C H 08/05/21 14:30 125 H 13 08/05/21 14:00 116 H 14 08/05/21 13:31 112 H 16 104/56 L 08/05/21 13:30 117 H 24 08/05/21 13:08 114 H 19 104/56 L 96 08/05/21 13:00 124 H 23 08/05/21 12:30 125 H 26 H 08/05/21 12:03 139 H 21 08/05/21 11:13 38.1 C H 144 H 18 102/68 100
[2021-08-05] MEDS ORDERED: ACETAMINOPHEN SUSP 325 MG/10.15 ML UDC PO PRN (16:38)
[2021-08-05] MEDS ORDERED: KETOROLAC TROMETHAMINE 15 MG/ML VIAL IV PRN (16:40)
--- NOTE | 2021-08-05 16:59 | History & Physical Report ---
Date of Service August 05, 2021 Assessment & Plan (1) Pharyngitis: Plan: #. Pharyngitis #. Likely pharyngeal abscess #. Sepsis POA Patient presented with sore throat and fever 1 days ago [employer]. Patient reports progressive worsening of her sore throat but no change in her voice and no difficulty breathing, reports pain while articulating. At presentation, WBC elevated with elevated temperature, Pro-Anuj and lactate normal. Admitting CT soft tissue neck with large abscess in the pharyngeal tonsil with enlargement of the bilateral palatine tonsil without evidence of drainable fluid collection. Patient received IV Tylenol, cefepime, ketorolac, IV fluid, vancomycin, Decadron in the ED. Anaplasma and Babesia smear negative, Lyme screen negative, monospot negative, EBV titers pending. Flu and RSV negative. COVID-19 negative. ENT evaluated, IV antibiotic and Decadron for now. N.p.o. after midnight for reassessment in the morning. Continue with vancomycin 08/05, Zosyn 08/05, Decadron 10 mg every 8 hrs Pain management and fever control. NPO, IVF. #. History of recurrent C. difficile, status post fecal transplant Continue with probiotics #. Other chronic medical conditions: Endometriosis, anxiety Resume/continue with home meds as and when appropriate #. DVT prophylaxis: SCDs for today, will put her on heparin after ENT reassessment tomorrow AM. #. Full Code. 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 Patient reports some associated headache in the frontal region. Patient denies dizziness or chest pain or cough or shortness of breath or palpitation or belly pain. Patient denies any acute changes in her bowel or bladder habit. Patient denies any change in her voice but reports it hurts to talk. Patient is smokes 1-1/2 pack a day, for 20 years per Pt. Patient denies alcohol use or recreational drug use/marijuana use. Full code Family history significant for HTN and HLD in father and muscular dystrophy and alcohol related disorder in mother. History of drug abuse in sister. Allergies Allergy/AdvReac Type Severity Reaction Status Date / Time oxycodone AdvReac Intermediate VOMITING Verified 08/05/21 15:08 sertraline AdvReac Intermediate nausea/vomi Verified 08/05/21 15:08 ting albuterol AdvReac Mild tachycardia Verified 08/05/21 15:08 Home Medications Medication Instructions Recorded Confirmed Type prenat.vits,anuj,mow-lshg-flrrl 1 tab PO DAILY 03/15/20 08/05/21 History ibuprofen 600 mg tablet 600 mg PO Q4H PRN #30 tab 09/16/20 08/05/21 Rx Lactobacillus acidophilus 10 10,000 mmu cells PO DAILY 08/05/21 08/05/21 History billion cell capsule (Probiotic) bupropion HCl 150 mg tablet,12 hr 150 mg PO BID 08/05/21 08/05/21 History sustained-release norgestimate-ethinyl estradiol 1 tab PO DAILY 08/05/21 08/05/21 History 0.18 mg/0.215mg/0.25mg-35 mcg(28)tablet (Tri-Sprintec (28)) Past Med/Surg History Medical History (Updated 08/05/21 @ 16:40 by Pramod Woodard DO) Anxiety (~12/03/00) Asplenia C. difficile colitis (~09/24/17) Endometriosis determined by laparoscopy (~04/27/15) Hypothyroidism (~12/02/12) Ovarian cyst (~02/02/08) Surgical History History of splenectomy (~11/16/10) Status post fecal microbiota transplant (~11/24/17) Social History Smoking Status: Current every day smoker Tobacco Type: Cigarettes Cigarettes Per Day: 10; Second Hand Exposure: Yes; Hx Alcohol Use: No Hx Substance Use: No Preferred Language: [place] Communication Ability: Effective Campground Hand Required: No Beliefs That Will Affect Care: None marital status: Current Living Situation: Spouse Current Living Situation Comment: lives with and 2 children How many Children do You have: 2 Feels Safe at Home: Yes Assistive Devices: None Review of Systems Review of Systems: Negative otherwise mentioned in HPI. Physical Exam Physical Exam: GENERAL: Alert and oriented x3. NAD, on RA. HEENT: No pallor, no icterus. Pupils equal, round and reactive to light. Oral mucosa moist. enlarged and erythematous b/l tonsils. Rt neck swollen compared to left. tender neck exam w/ superficial palpation. NECK: No JVD, no neck masses. HEART: S1 and S2 heard. Tachycardic. No murmur, no gallop. RESPIRATORY SYSTEM: Normal AP diameter. No accessory muscle use. No wheezing, no crackles. ABDOMEN: Soft, bowel sounds present, nontender, no distention. CENTRAL NERVOUS SYSTEM: No facial droop. Speech is clear. Obeys simple commands. Moves extremities. EXTREMITIES: No edema, no erythema seen. Results & Data Results & Data ([facility]) Vital Signs (Past 12 Hours) Vital Signs Temp Pulse Pulse Resp BP BP Pulse Ox 08/05/21 14:55 38.3 C H 08/05/21 14:30 125 H 13 08/05/21 14:00 116 H 14 08/05/21 13:31 112 H 16 104/56 L 08/05/21 13:30 117 H 24 08/05/21 13:08 114 H 19 104/56 L 96 08/05/21 13:00 124 H 23 08/05/21 12:30 125 H 26 H 08/05/21 12:03 139 H 21 08/05/21 11:13 38.1 C H 144 H 18 102/68 100 Code Status & VTE Plan VTE Prophylaxis Plan VTE Prophylaxis will be ordered: Yes
--- NOTE | 2021-08-05 17:24 | Pharmacy Report ---
Pharmacy PK ABX Note - Date of Service August 05, 2021 - Assessment and Plan Assessment * 35 year old F receiving Unasyn and vancomycin for treatment of sepsis 2nd pharyngeal abscess. Febrile, tachycardic, elevated WBC on admission. * PMH: splenectomy, C. diff s/p fecal txp * Possible BRIE - baseline SCr 0.6 mg/dL, but currently 1.14 mg/dL Vancomycin * Will dose via level for now given possible BRIE Plan * Loading dose: vancomycin 1250 mg IV * Random level ordered for: 08/06/21 Pharmacy will continue to follow and will adjust dose/frequency as necessary. Thank you. Pharmacy has transitioned to AUC monitoring for vancomycin. AUC/VLAD is the preferred PK/PD target and is associated with decreased risk of nephrotoxicity compared to traditional trough targets.
[2021-08-05] MEDS: SODIUM CHLORIDE 0.9% 1000ML 1,000 ML IV SCH (18:32)
[2021-08-05] MEDS ORDERED: PIPERACILLIN/TAZOBACTAM 3.375 GM in DEXTROSE 5% 100 ML IV SCH (19:00)
[2021-08-05] MEDS: LACTOBACILLUS ACIDOPHILUS 1 GM PACK PO SCH (20:24)
--- NOTE | 2021-08-05 21:26 | Electrocardiogram Report ---
Test Reason : Blood Pressure : / mmHG Vent. Rate : 127 BPM Atrial Rate : 127 BPM P-R Int : 142 ms QRS Dur : 070 ms QT Int : 276 ms P-R-T Axes : 066 075 041 degrees QTc Int : 401 ms Sinus tachycardia Nonspecific T wave abnormality Abnormal ECG When compared with ECG of 09-DEC-2019 22:03, Vent. rate has increased BY 61 BPM Nonspecific T wave abnormality now evident in Inferior leads Nonspecific T wave abnormality now evident in Anterolateral leads Confirmed by Juanito Aly ([id number]) on 08/05/2021 9:25:34 PM Referred By: REFERRED SELF Confirmed By:Juanito Aly
[2021-08-05] MEDS: AMPICILLIN/SULBACTAM SOD 3,000 MG in 0.9 % SODIUM CHLORIDE 100 ML IV SCH (21:28)
[2021-08-06] MEDS: AMPICILLIN/SULBACTAM SOD 3,000 MG in 0.9 % SODIUM CHLORIDE 100 ML IV SCH ×3 (00:16→14:55)
[2021-08-06] MEDS: dexAMETHasone 10 MG in SYRINGE 0 ML IV SCH ×3 (00:16→14:56)
[2021-08-06] MEDS: SODIUM CHLORIDE 0.9% 1000ML 1,000 ML IV SCH (07:21)
[2021-08-06] MEDS: LACTOBACILLUS ACIDOPHILUS 1 GM PACK PO SCH ×2 (07:39→12:36)
[2021-08-06 08:17] LABS: Hematocrit (blood only) 34.9 % (37-47); Hemoglobin 11.7 g/dL (12.0-16.0); Mean Corpuscular Hemoglobin 33.3 pg (25-34); Mean Corpuscular Hgb Conc 33.5 g/dL (32-36); Mean Corpuscular Volume 99.4 fL (80-100); Mean Platelet Volume 9.3 fL (7.4-10.4); Platelet Count 348 K/uL (130-400); RDW Coefficient of Variation 14.3 % (11.5-14.5); RDW Standard Deviation 51.8 fL (36.4-46.3); Red Blood Count 3.51 M/uL (4.2-5.4); White Blood Count 28.64 K/uL (4.8-10.8)
--- NOTE | 2021-08-06 08:37 | Ears,Nose,Throat Progress Note ---
Date of Service August 06, 2021 Assessment & Plan (1) Nasopharyngitis: Plan: Marked improvement after IV abx and steroids. Recommend continued abx and steroids per primary service. No surgical intervention at this time. If discharged, will see her back in my office later in the week. Admission and Anticipated Discharge Date Admission Date: August 05, 2021 Subjective Patient feeling much better. She states she feels 95% better than she did yesterday. Still has slight sore throat but is drastically improved. Swallowing improved as well. Is afebrile. Physical Exam Physical Exam: PROCEDURE: Fiberoptic laryngoscopy was performed. Nasopharynx with marked decrease in adenoid size. Hypopharynx and larynx normal. ENMT: Tonsils 2+ with decreased exudate Neck: ROM normal Results & Data ([facility]) Vital Signs (Past 12 Hours) Vital Signs Temp Pulse Pulse Resp BP Pulse Ox 08/06/21 08:00 36.7 C 69 14 90/57 L 97 08/06/21 03:54 36.5 C 60 20 88/56 L 97 08/06/21 00:37 86 08/05/21 22:33 36.6 C 79 20 119/62 92
[2021-08-06 08:50] LABS: BUN Creatinine Ratio 11.9 (10-20); Calcium 7.8 mg/dl (8.5-10.1); Creatinine Clr Calc Pharmacy 104.2 ml/min; Est GFR (African American) 133.9 ml/min; Est GFR (Non-African American) 115.5 ml/min; Magnesium 2.1 mg/dl (1.7-2.4); Phosphorus 1.9 mg/dl (2.5-4.9); Potassium 4.2 mmol/L (3.5-5.1)
--- NOTE | 2021-08-06 09:30 | Pharmacy Report ---
Pharmacy PK ABX Note - Date of Service August 06, 2021 - Assessment and Plan Assessment * 35 year old F receiving Unasyn and vancomycin for treatment of sepsis 2nd pharyngeal abscess. Febrile, tachycardic, elevated WBC on admission. * PMH: splenectomy, C. diff s/p fecal txp * Given one dose of Vancomycin IV yesterday with random level this AM d/t possible BRIE, SCr improved 1.14 --> 0.67mg/dl today * Vancomycin level 3.5mg/dl * Patient feels 95% better on less than 24 hours of IV antibiotics + steroids * Asked Dr Garcia if we could discontinue IV Vancomycin, Dr Garcia would like to continue IV Vancomycin + Unasyn at this time * Blood cultures pending, afebrile today Plan * Unasyn 3g IV Q6H * Vancomycin 1250 mg IV q12h * Follow up trough levels in 4-5 doses if patient continues on Vancomycin Pharmacy will continue to follow and will adjust dose/frequency as necessary. Thank you. Pharmacy has transitioned to AUC monitoring for vancomycin. AUC/VLAD is the preferred PK/PD target and is associated with decreased risk of nephrotoxicity compared to traditional trough targets.
[2021-08-06] MEDS ORDERED: VANCOMYCIN HCL 1,250 MG in SODIUM CHLORIDE 0.9% 250 ML IV SCH (10:00)
[2021-08-06] MEDS ORDERED: SODIUM PHOSPHATE 3 MMOL/1 ML INFUSION IV STA (10:03)
[2021-08-06] MEDS ORDERED: SODIUM PHOSPHATE 15 MMOL in SODIUM CHLORIDE 0.9% 250 ML IV ONE (10:30)
--- NOTE | 2021-08-06 14:31 | Discharge Summary ---
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 Patient reports some associated headache in the frontal region. Patient denies dizziness or chest pain or cough or shortness of breath or palpitation or belly pain. Patient denies any acute changes in her bowel or bladder habit. Patient denies any change in her voice but reports it hurts to talk. Patient is smokes 1-1/2 pack a day, for 20 years per Pt. Patient denies alcohol use or recreational drug use/marijuana use. Full code Family history significant for HTN and HLD in father and muscular dystrophy and alcohol related disorder in mother. History of drug abuse in sister. Admission Exam Per Admitting Provider GENERAL: Alert and oriented x3. NAD, on RA. HEENT: No pallor, no icterus. Pupils equal, round and reactive to light. Oral mucosa moist. enlarged and erythematous b/l tonsils. Rt neck swollen compared to left. tender neck exam w/ superficial palpation. NECK: No JVD, no neck masses. HEART: S1 and S2 heard. Tachycardic. No murmur, no gallop. RESPIRATORY SYSTEM: Normal AP diameter. No accessory muscle use. No wheezing, no crackles. ABDOMEN: Soft, bowel sounds present, nontender, no distention. CENTRAL NERVOUS SYSTEM: No facial droop. Speech is clear. Obeys simple commands. Moves extremities. EXTREMITIES: No edema, no erythema seen. Principal Diagnosis Pharyngitis Likely pharyngeal abscess Sepsis POA Discharge Exam GENERAL: Alert and oriented x3. NAD, on RA. HEENT: No pallor, no icterus. Pupils equal, round and reactive to light. Oral mucosa moist. enlarged and erythematous b/l tonsils--significant improving erythema and swelling. NECK: No JVD, no neck masses. HEART: S1 and S2 heard. Tachycardic. No murmur, no gallop. RESPIRATORY SYSTEM: Normal AP diameter. No accessory muscle use. No wheezing, no crackles. ABDOMEN: Soft, bowel sounds present, nontender, no distention. CENTRAL NERVOUS SYSTEM: No facial droop. Speech is clear. Obeys simple commands. Moves extremities. EXTREMITIES: No edema, no erythema seen. Discharge Data Allergies Allergy/AdvReac Type Severity Reaction Status Date / Time oxycodone AdvReac Intermediate VOMITING Verified 08/05/21 15:08 sertraline AdvReac Intermediate nausea/vomi Verified 08/05/21 15:08 ting albuterol AdvReac Mild tachycardia Verified 08/05/21 15:08 Consultations 08/05/21 16:10 ED Decision to Admit Stat Ordered Studies 08/05/21 13:30 CT soft tissue neck w con Stat Hospital Course (1) Pharyngitis: 35-year-old lady was managed with the following: #. Pharyngitis #. Likely pharyngeal abscess #. Sepsis POA Patient presented with sore throat and fever 1 days ago [employer]AB[employer]T SP[employer]NER. Patient reported progressive worsening of her sore throat but no change in her voice and no difficulty breathing, reports pain while articulating. At presentation, WBC elevated with elevated temperature, Pro-Gurmeet and lactate normal. Admitting CT soft tissue neck with large abscess in the pharyngeal tonsil with enlargement of the bilateral palatine tonsil without evidence of drainable fluid collection. Patient received IV Tylenol, cefepime, ketorolac, IV fluid, vancomycin, Decadron in the ED. Anaplasma and Babesia smear negative, Lyme screen negative, monospot negative, EBV titers pending. Flu and RSV negative. COVID-19 negative. ENT evaluated, okay with discharge from their point of view. No need for surgical intervention. Follow-up with ENT as an outpatient in a week time. Medrol Dosepak upon discharge. Patient being discharged on Augmentin, MRSA screen pending [will decide discharge med adjustment after MRSA screen results are out]. Patient to be discharged after MRSA screen result is out. Patient on vancomycin 08/05, Zosyn 08/05, Decadron 10 mg every 8 hrs --> Augmentin and Medrol Dosepak upon discharge pending MRSA screen result. Patient reports significant improvement in her sore throat, throat exam improved nicely with improving erythema and swelling, patient swallowing better. Patient feels better and wants to go home. #. History of recurrent C. difficile, status post fecal transplant Continue with probiotics #. Other chronic medical conditions: Endometriosis, anxiety Resume/continue with home meds as and when appropriate #. Full Code. Patient being discharged home with following instruction at the point of discharge: Follow-up with your primary care physician within a week time. Follow-up with ENT doctor in a week time. You are being discharged on oral antibiotic to complete 14-day course, follow-up with your ENT doctor as an outpatient, continue to take your probiotic. Take your antibiotics from 08/06/2021 evening after discharge. You are also being discharged on Medrol Dosepak to help with your swelling and pain. Take your Medrol Dosepak from 08/07/2021 morning daily for 6 days. It is tapering dose. Get your blood work CBC and CMP in a week time and have the results forwarded to your primary care physician. Take medications as prescribed. Total Time Total Time Spent Total Time Spent (In Minutes): 40 Discharge Plan Discharge Items Patient Disposition: Home - Self-Care Reason For Visit: THROAT PAIN,DIFFICULTY SWALLOWING Discharge Diagnosis: Pharyngitis Likely pharyngeal abscess Sepsis POA Activity: Resume your previous activity Non-emergency contact: Primary Care Provider Call non-emergency contact if: you have any medication questions, your symptoms worsen and your rectal temperature is above 100.4 Follow-up/Referrals: PCP,NO [Primary Care Provider] - Diet: Regular Diet Texture: Dental soft (bite-sized) Addtl Attending Provider Instructions: Follow-up with your primary care physician within a week time. Follow-up with ENT doctor in a week time. You are being discharged on oral antibiotic to complete 14-day course, follow-up with your ENT doctor as an outpatient, continue to take your probiotic. Take your antibiotics from 08/06/2021 evening after discharge. You are also being discharged on Medrol Dosepak to help with your swelling and pain. Take your Medrol Dosepak from 08/07/2021 morning daily for 6 days. It is tapering dose. Get your blood work CBC and CMP in a week time and have the results forwarded to your primary care physician. Take medications as prescribed. Pending Studies at Discharge: Yes (Admitting blood culture) Stand-Alone Forms: My [employer], Smoking Cessation Medications and DC Order Prescriptions: New amoxicillin-pot clavulanate 875-125 mg tablet 1 tab PO BID 13 Days Qty: 26 RF: 0 methylprednisolone [Methylpred DP] 4 mg tablets,dose pack 4 mg PO DAILY Qty: 21 RF: 0 Continued prenat.vits,gurmeet,pii-vpid-vivoa Tablet 1 tab PO DAILY RF: 0 ibuprofen 600 mg Tablet 600 mg PO Q4H PRN (Reason: fever or pain) Qty: 30 RF: 2 bupropion HCl 150 mg tablet sustained-release 12 hr 150 mg PO BID RF: 0 norgestimate-ethinyl estradiol [Tri-Sprintec (28)] 0.18/0.215/0.25 mg-35 mcg (28) tablet 1 tab PO DAILY RF: 0 Probiotic 10 billion cell Capsule 10,000 mmu cells PO DAILY RF: 0 Discharge Orders: Discharge Order (Routine); Ordered 08/06/21 Ordered By: Nikolai Garcia Admission Data Admit Date/Time: 08/05/21 16:26 Attending Provider: Nikolai Garcia Admit Provider: Nikolai Garcia Primary Care Provider: PCP,NO Other Providers: Nikolai Garcia
[2021-08-07 13:02] LABS: EBV Nuclear Ag Antibody >600.00 U/mL
[2021-08-08 15:43] LABS: Babesia microti DNA Not Detected (Not Detected)
== END 2021-08-06 17:09 | disposition home or self-care (01) | DRG 872 ==
LOC: ED 11:08 → 2S 16:26